=== PATIENT | female | born 1940 | race Caucasian/White ===

== ENCOUNTER 2016-12-31 15:00 | Inpatient (IN) | payer MEDICARE ==
--- NOTE | 2017-01-02 22:00 | HP ---
HISTORY AND PHYSICAL: DATE OF ADMISSION/SURGERY: 01/07/17 DATE OF OFFICE VISIT: 01/01/17 ATTENDING PHYSICIAN/SURGEON: Dr. Mary Jo Veloz. (DICTATED BY LILLIAM MUNOZ) PROCEDURE: Left total knee replacement. CHIEF COMPLAINT: Left knee pain. HISTORY OF PRESENT ILLNESS: Ms. Deng is a 76-year-old female with complaints of left knee pain secondary to advanced osteoarthritis. She has failed conservative management and has elected to proceed with a left total knee arthroplasty, which is scheduled on 01/07/17. PAST MEDICAL HISTORY: 1. Hypertension. 2. Gout. 3. Left elbow fracture. 4. Bilateral lower extremity edema. PAST SURGICAL HISTORY: Appendectomy. CURRENT MEDICATIONS: 1. Chlorthalidone. 2. Diltiazem. 3. Atenolol. 4. Vitamin B12. 5. Lisinopril. 6. Aspirin. 7. Advil. ALLERGIES: To PENICILLIN. FAMILY HISTORY: Heart disease, stroke, and brain cancer. SOCIAL HISTORY: The patient lives alone. She has a daughter who lives nearby. Denies tobacco, alcohol, or recreational drug use. Normally ambulates with a cane. REVIEW OF SYSTEMS: A complete 14-point review of systems was reviewed with the patient and is positive for edema, hypertension, and knee, bilateral shoulder, and elbow pain, was negative for history of anesthesia problems and negative for hepatitis C, HIV, and MRSA. Negative for DVT. PHYSICAL EXAMINATION GENERAL: Well-developed, well-nourished, 76-year-old female, in no acute distress. VITAL SIGNS: Height 63.5 inches, weight 250 pounds, pulse 81, blood pressure 145/78, respirations 14, temperature was 98.5, BMI of 43.6. HEENT: Head is normocephalic and atraumatic. NECK: Supple with no palpable lymph nodes. Throat is clear. PULMONARY: Lungs clear to auscultation bilaterally. No wheezes, rales, or rhonchi. CARDIO: Regular rate and rhythm. S1 and S2. No murmurs, rubs, or gallops. Trace edema. ABDOMEN: Soft, nontender. Positive bowel sounds throughout. NEUROLOGICAL: Alert and oriented x3. Cranial nerves II through XII are intact. Sensation intact to light touch. MUSCULOSKELETAL: Left lower extremity, no abrasions or open wounds. A large effusion at the knee with tenderness to palpation along the medial and lateral joint line. Range of motion was 15 to 100 degrees of flexion with terminal pain. No varus or valgus instability. Distally, 1+ pitting edema. Calves are supple and nontender. 5/5 ankle dorsiflexion and plantar flexion strength. Full sensation to light touch in all nerve distributions and 2+ palpable pulses. DIAGNOSTIC STUDIES: Multiple views of the patient's bilateral knees were reviewed, which showed advanced arthritis with [id number] contact with medial joint space. There is significant osteophyte formation, subchondral sclerosis, and joint space narrowing bilaterally. IMPRESSION: A 76-year-old female with advanced left knee arthritis. PLAN: She has failed conservative management, has elected to proceed with a left total knee arthroplasty, which is scheduled on 01/07/[address] Veloz has discussed the risks and benefits of the surgery and all her questions were answered. Coumadin was sent to the pharmacy today for postoperative DVT prophylaxis. A prescription for oxycodone was sent to her pharmacy for postoperative pain management and prescription for Colace was sent for post- operative constipation. She will see Dr. Veloz in 10 to 14 days postoperatively for followup. LILLIAM STRICKLAND [id number]/[facility] #: [id number] MTDD
[2017-01-07] MEDS ORDERED: Ondansetron INJ* 2 MG/ML VIAL IV ONE (06:00)
[2017-01-07] MEDS ORDERED: Dexamethasone IV* 4 MG/ML 1 ML (4 MG) IV SLOW PU ONE (06:00)
[2017-01-07] MEDS ORDERED: DiMENhydriNATE IV* 50 MG/ML VIAL IV PUSH PRN ×2 (07:22→15:02)
[2017-01-07] MEDS ORDERED: Ondansetron INJ* 2 MG/ML VIAL IV PRN ×2 (07:22→15:02)
[2017-01-07] MEDS ORDERED: fentaNYL* 50 MCG/ML 2 ML VIAL (100 MCG VIAL) IV PRN (07:22)
[2017-01-07] MEDS ORDERED: PROCHLORPERAZINE INJ 5 MG/ML 2 ML VIAL IV PRN ×2 (07:22→15:02)
[2017-01-07] MEDS ORDERED: HYDROmorphone* 1 MG/ML 1 ML SYR IV PRN (07:22)
[2017-01-07] MEDS ORDERED: HYDROmorphone* 1 MG/ML 1 ML SYR ONE ×3 (08:37→14:59)
[2017-01-07] MEDS ORDERED: Midazolam* 1 MG/ML 5 ML VIAL (5 MG) ONE (08:38)
[2017-01-07] MEDS ORDERED: fentaNYL* 50 MCG/ML 2 ML VIAL (100 MCG VIAL) ONE ×3 (08:38→13:54)
[2017-01-07] MEDS ORDERED: Morphine PF AMP (0.5MG/ML)* 5 MG/10 ML AMP ONE (08:38)
[2017-01-07] MEDS ORDERED: Ondansetron INJ* 2 MG/ML VIAL ONE (08:53)
[2017-01-07] MEDS ORDERED: Dexamethasone IV* 4 MG/ML 1 ML (4 MG) ONE (08:53)
[2017-01-07] MEDS ORDERED: Dexmedetomidine* 200 MCG/2 ML 2 ML VIAL ONE (08:55)
[2017-01-07] MEDS ORDERED: Propofol* 10 MG/ML 20 ML BTL IV PUSH ONE ×2 (08:55→13:24)
[2017-01-07] MEDS ORDERED: Meperidine SYRINGE* 50 MG/ML ONE ×2 (12:20→15:00)
[2017-01-07] MEDS ORDERED: Morphine INJ* 10 MG/ML 1 ML SYRINGE ONE (13:23)
[2017-01-07] MEDS ORDERED: Bisacodyl SUPP* 10 MG SUPP PR PRN (14:56)
[2017-01-07] MEDS ORDERED: Polyethylene Glycol 3350* 17 GM PACKET PO PRN (14:56)
[2017-01-07] MEDS ORDERED: Acetaminophen TAB* 325 MG PO PRN (14:56)
[2017-01-07] MEDS ORDERED: Naloxone* 0.4 MG/ML 1 ML VIAL IV PRN (15:02)
[2017-01-07] MEDS ORDERED: Nalbuphine* 20 MG/ML 1 ML VIAL IV PRN (15:02)
[2017-01-07] MEDS ORDERED: diPHENhydraMINE IV* 50 MG/ML 1 ml VIAL (BENADRYL) IV PRN (15:02)
--- NOTE | 2017-01-07 15:40 | RAD ---
Indication: Immediate postop exam following LEFT total knee replacement. Comparison: January 01, 2017 Technique: Portable AP and cross table lateral views LEFT knee. Report: Status post total knee replacement. Anterior surgical drain in place. Post-op fluid and gas is seen in the joint space and anterior subcutaneous tissues. Alignment is anatomic. No periprosthetic fracture evident. IMPRESSION: Unremarkable immediate postoperative appearance following LEFT knee replacement.
[2017-01-07] MEDS ORDERED: Warfarin TAB(*) 6 MG PO ONE (17:00)
[2017-01-07] MEDS: Clindamycin 600 MG IVPREMIX(* 600 MG/50 ML SDV IV SCH (18:33)
[2017-01-07] MEDS: Docusate CAP* 100 MG PO SCH (20:54)
[2017-01-07] MEDS ORDERED: LISINOPRIL 30 MG PO SCH (21:00)
[2017-01-07] MEDS: oxyCODONE/Acetamin 5/325 MG* TAB PO PRN (22:07)
--- NOTE | 2017-01-07 23:19 | CONS ---
CONSULTATION REPORT: DATE OF CONSULT: 01/07/17 REASON FOR MEDICAL CONSULT: Medical evaluation and medical management of comorbid medical conditions while here in the hospital. HISTORY OF PRESENT ILLNESS: Ms. Deng is a 76-year-old female patient, she carries a history of hypertension, gout, left elbow fracture, and history of bilateral lower extremity edema. She comes into the orthopedic services today because in the outpatient setting, she was complaining of knee pain for some time, failing conservative management, and was affecting her activities of daily living. She sought care with Dr. Veloz, ultimately it was felt that total knee replacement was indicated. The patient pursued this procedure today. She was evaluated in the postoperative setting. She says she is feeling quite well. She says she still does not have quite movement of her toes and sensations just yet, but she is able to move her legs at the knees and hips particularly on her right side. She says that she other than not feeling her leg, she has no complaints. She denies any chest pain, shortness of breath. There is no abdominal pain, says she does not feel nauseous. Because of her medical complexity, we were asked to evaluate in consult. PAST MEDICAL HISTORY: Significant for: 1. Hypertension. 2. Gout. 3. Left elbow fracture. 4. Bilateral lower extremity edema. PAST SURGICAL HISTORY: 1. She has had an appendectomy. 2. She has had now left total knee replacement. MEDICATIONS: Her home meds according to the list that we are able to obtain include: 1. Colchicine 0.6 mg p.o. daily as needed. 2. Chlorthalidone 25 mg daily. 3. Advil 200 to 400 mg daily as needed. 4. Vitamin B12 1000 mcg p.o. daily. 5. Lisinopril 30 mg p.o. b.i.d. I did confirm the b.i.d. dosing with her primary's notes. 6. Atenolol 50 mg p.o. daily. 7. Aspirin 81 mg daily. 8. Cartia 240 mg p.o. daily. ALLERGIES TO MEDICATIONS: LEVAQUIN, PENICILLIN, and VASELINE. FAMILY HISTORY: Her mother had a history of CVA. Father had a history of brain tumor. SOCIAL HISTORY: She does not smoke. She does not drink. Surrogate decision maker is her daughter, Erma. She lives alone. REVIEW OF SYSTEMS: There is no documented fever. She denied having any significant weight change. There was no double vision. She denies having any ear discharge. There was no rhinorrhea. There is no sore throat. No thyroid enlargement. She denies having any chest pain. No orthopnea, no nocturnal dyspnea. There is no abdominal pain. No nausea, no vomiting. No dysuria, no frequency. There is no seizure and no loss of consciousness. No pruritus and no skin ulcerations. Review of 14 systems completed, all others negative. PHYSICAL EXAM: Reveals vital signs, last blood pressure was 95/41 with pulse of 54, respirations 16, O2 sat 96%, temperature was 97.3. General: At this time, Ms. Deng is a 76-year-old female patient. She appears to be well nourished, well developed. Does not appear to be in any acute distress. She is sitting in the PACU bed. HEENT: Head is atraumatic and normocephalic. Eyes : EOMs are intact. Sclerae anicteric and not pale. Neck is supple. Throat: Oral mucosa appears to be moist. No oropharyngeal erythema. Heart sounds S1 and S2, regular rate and rhythm. No murmurs, rubs, or gallops. Lungs: Clear to auscultation bilaterally. No wheezes, rales, or rhonchi. Abdomen: Soft, flat, and nontender. Bowel sounds are hypoactive. Extremities: Pulses 2+ throughout. She is able to move her upper extremities with 5/5 strength, but again lower extremities, she had difficulty moving. She can flex up the hips. Distal CSM checks are intact in the lower extremities. Neurologically, she is awake, she is alert, she is oriented x3. Her tongue is midline. Export Coordinator are equal. She had no gross focal deficits. Skin is intact with the exception she has an incision to the left knee covered in Rosas dressing. Hemovac drain intact. DIAGNOSTIC STUDIES/LAB DATA: Her labs, preoperative WBC 10.8, RBC of 4.77, hemoglobin 13.3, hematocrit of 42, and platelet count of 302. The INR was 0.87. Sodium was 138, potassium 4.3, chloride 102, bicarb 27, BUN 19, creatinine of 0.92. Her glucose was 103. Her A1c 5.9. AST 10, ALT 7. Her urine was obtained preop, it showed 1+ leukocyte esterase, 1+ wbc. She had a urine micro, which was negative. She had a preop chest x-ray, which showed no active cardiopulmonary disease. There was a preoperative EKG. She has several here in the chart, but it shows a sinus rhythm with a rate of 90. No ST elevations or T-wave inversions were noted. Old medical records reviewed. ASSESSMENT AND PLAN: Ms. Deng is a 76-year-old female patient coming in to the orthopedic service today for an elective total knee replacement. We were asked to evaluate in consult to help manage her medical problems. Our recommendations at this point are: 1. Left total knee replacement. I will defer to Dr. Veloz and her team. 2. Hypertension. Blood pressure now 90s. This is probably low because of the Duramorph given, so I am going to hold her medications with the exception of the beta moi. I did write for hold parameters on the beta moi for heart rate less than 60 or blood pressure systolic less than 100. We will slowly re- introduce her medications when we are able. 3. Gout. Again, we will follow. If need to, we will give her p.r.n. colchicine. 4. History of bilateral edema. We will monitor and diurese if needed. 5. DVT prophylaxis. We will defer to the primary team. 6. Code status: Full code. 7. Fluids, electrolytes, and nutrition. I would recommend a heart healthy diet. TIME SPENT: Time spent on the consult was approximately 60 minutes, greater than half that time was spent [id number] with the patient obtaining my history and physical, other half the time was spent going over the plan of care with the patient and implementing the plan of care. I did discuss the plan of care with my attending, Dr. Campo, who is in agreement. JUDIE ZAMBRANO NP CC: Dr. Degroot; Dr. Veloz* [id number]/[facility] #: [id number] MTDRuben
[2017-01-08] MEDS: Clindamycin 600 MG IVPREMIX(* 600 MG/50 ML SDV IV SCH ×2 (02:29→10:41)
[2017-01-08] MEDS: oxyCODONE/Acetamin 5/325 MG* TAB PO PRN ×4 (02:35→17:53)
[2017-01-08] MEDS ORDERED: Ondansetron TAB* 4 MG PO PRN (04:00)
[2017-01-08] MEDS ORDERED: diPHENhydraMINE IV* 50 MG/ML 1 ml VIAL (BENADRYL) IV PRN (04:00)
[2017-01-08] MEDS ORDERED: Morphine INJ* 2 MG/ML 1 ML SYRINGE IV PRN (04:00)
[2017-01-08] MEDS ORDERED: oxyCODONE/Acetamin 5/325 MG* TAB PO PRN (04:00)
[2017-01-08 06:10] LABS: Hematocrit 29 % (35-47); Hemoglobin 9.5 g/dl (12.0-16.0)
[2017-01-08 06:23] LABS: BUN/Creatinine Ratio 16.9 (8-20); Calcium 8.9 mg/dL (8.6-10.3); EGFR Non-African American 73.1 (>60); Potassium 3.9 mmol/L (3.5-5.0)
[2017-01-08] MEDS: Atenolol TAB* 50 MG PO SCH (08:41)
[2017-01-08] MEDS: Docusate CAP* 100 MG PO SCH ×2 (08:41→21:25)
[2017-01-08] MEDS ORDERED: Chlorthalidone TAB* 50 MG PO SCH (09:00)
[2017-01-08] MEDS ORDERED: DILTIAZEM 240 MG PO SCH (09:00)
[2017-01-08] MEDS ORDERED: ATENOLOL 50 MG PO SCH ×2 (09:00)
--- NOTE | 2017-01-08 10:08 | OP ---
OPERATIVE NOTE: DATE OF OPERATION: 01/07/17 - inpatient room #347-02 DATE OF : 42 ATTENDING SURGEON: Mary Jo Veloz MD NEW MEDIA STRATEGIST: LILLIAM Fitzgerald Ms. English did help throughout the procedure with preparation of the leg, wound retraction, manipulation of the knee, and wound closure. ANESTHESIOLOGIST: David Chow MD ANESTHESIA TYPE: Spinal with adductor nerve block. PRE-OP DIAGNOSIS: Severe end-stage degenerative osteoarthritis of the left knee joint. POST-OP DIAGNOSIS: Severe end-stage degenerative osteoarthritis of the left knee joint. PROCEDURE PERFORMED: Left total knee arthroplasty. HARDWARE USED: This is cemented [employer] total knee arthroplasty hardware. Two packets of Simplex bone cement were used. For the femur, a size 6 left narrow femoral component. For the tibia, a size 5 left tibial baseplate. For the insert, a 9-mm posterior stabilized articular insert. For the patella, a 35-mm 7.5 thickness 3-peg all poly patella. TOURNIQUET TIME: 63 minutes. COMPLICATIONS: None. ESTIMATED BLOOD LOSS: 300 cc. SPECIMEN: Bone and cartilage from the left knee joint, sent to pathology. BRIEF HISTORY/INDICATIONS: Ms. Deng is a 76-year-old female with a remote injury to the left knee. Over the years, she has developed severe end-stage arthritis with [id number] contact on radiographs. She failed conservative treatment with anti-inflammatories, pain medications, intra-articular injections , physical therapy, and brace wear. The patient elected to have left total knee arthroplasty due to continued pain and decreased quality of life. Informed consent was obtained from the patient. She understood the risks included, but were not limited to bleeding, infection, damage to nearby structures, continued pain, need for further surgery, intraoperative fracture, nerve palsy, hardware failure or loosening, knee stiffness, loss of motion, stroke, heart attack, blood clot, and . She wished to proceed. INTRAOPERATIVE FINDINGS: Intraoperatively, the patient was noted to have extreme knee stiffness preoperatively with motion 15 to 85 degrees of flexion. Postoperatively, she had full extension to 110 degrees of flexion limited by her morbid obese body habitus. The patient was noted to have extensive tricompartmental loss of cartilage. She had osteopenia and extensive osteophyte formation. DESCRIPTION OF PROCEDURE: Ms. Deng was identified in the pre-anesthesia unit. Her left lower extremity was marked as the correct operative site. Informed consent was signed and placed in the chart. The patient was taken to the operating room and placed under spinal anesthesia with an adductor nerve block. A Hernandez catheter was placed. Tourniquet was placed on the left thigh. Left lower extremity was prepped and draped in the usual sterile fashion. Preop time-out was made to correctly identify the patient's side and site. Appropriate perioperative antibiotics were given within 1 hour of incision. Tourniquet was inflated and total tourniquet time for this procedure was 63 minutes. A 15-cm midline incision was made using her prior anterior incision. A new 10 blade was used to make a standard medial parapatellar arthrotomy and the patella was subluxed laterally. There was extensive osteophyte formation and the knee flexed only to approximately 85 degrees. Electrocautery was used to subperiosteally elevate soft tissue off the superomedial tibia to the mid sagittal plane. Any osteophytes were carefully removed. A drill was used to enter the distal femur. Intramedullary distal femoral cutting guide was pinned to the position. Oscillating saw was used to make the appropriate distal femoral cuts. External rotation guide was then pinned on the distal femur. The distal femur was sized to a size 6. Size 6 multi-cutting jig was pinned on the distal femur. The oscillating saw was used to make the appropriate chamfer cuts. Any osteophytes were carefully removed. The PCL was completely released and the tibia was subluxed anteriorly. Extramedullary tibial cutting guide was pinned on the proximal tibia. Oscillating saw was used to make a proximal tibial cut perpendicular to the mechanical axis of the tibia. The tibial bone was carefully removed with a curette. The knee was brought out into full extension. A spacer block had good fit with good medial and lateral ligamentous balancing. Flexion and extension gaps were well balanced. The knee was flexed up. Lamina potato loader was placed both medially and laterally. Any remaining meniscus was carefully removed using electrocautery. Posterior osteophytes were removed using a curette and curved osteotome. A left size 6 narrow femoral component was impacted onto the distal femur. The box for the posterior stabilized implant was prepared using a reamer and box cut osteotome. Size 5 tibial trial and a 9-mm insert trial were placed. The knee was taken through a range of motion. The knee had full extension to 110 degrees of flexion with flexion limited by body habitus, good patellofemoral tracking. The patella was everted. 7 mm of patellar bone and cartilage were carefully removed with an oscillating saw. The patella was sized to a size 35. Three peg holes were drilled through the size 35 guide. A 7.5 thickness size 35 patellar trial was placed and the knee was taken through range of motion. There was good patellofemoral tracking. All trials were carefully removed. Tibia was subluxed anteriorly and sized through size 5. Proximal tibia was prepared using the size 5 keel punch. All bony cut surfaces were copiously irrigated with sterile saline and dried. Final implants were cemented into place starting with the tibia followed by the femur and last the patella. A 9 mm insert trial was placed and the knee was brought out into full extension. Tourniquet was turned down at 63 minutes. The knee was copiously irrigated with sterile saline. Once the cement had fully cured, the insert trial was removed. Any excess cement was carefully removed using thin osteotome around the implants. Electrocautery was used to obtain meticulous hemostasis. Final insert chosen was 9 mm posterior stabilized articular insert. This was locked into position on the tibial tray. The stability of the insert was checked and rechecked and noted to be stable. The knee was copiously irrigated with sterile saline. The extensor mechanism was closed over a medium Hemovac drain using interrupted #1 Vicryl's. The rest of the incision was closed in a layered fashion using 0 and 2-0 Vicryl's. Skin was closed using running 3-0 nylon suture. Sterile Xeroform, 4x4's, and Webril were used to cover the incision. Cold pack and Rosas wrap were placed over this. The patient's anesthesia was reversed without difficulty. She was taken to the PACU in stable condition. Intended weightbearing will be weightbearing as tolerated. Intended DVT prophylaxis will be Coumadin with a Lovenox bridge. [id number]/[facility] #: [id number] FRENCH HOSPITALRuben
--- NOTE | 2017-01-08 10:15 | PN ---
Progress Note - Progress Note SOAP: Subjective: []Patient seen at bedside, daughter and manager performance improvement present. Overall her pain is tolerable. Has many questions about her discharge plan which were answered to the best of my ability. Objective: [] Vital Signs Temp 97.6 F 01/08/17 07:48 Pulse 62 01/08/17 07:48 Resp 16 01/08/17 08:41 BP 138/68 01/08/17 08:45 Pulse Ox 99 01/08/17 08:00 Intake & Output 01/07/17 01/08/17 01/08/17 18:59 06:59 18:59 Intake Total 2500 2273 Output Total 30 950 375 Balance 2470 1323 -375 Weight 256 lb 6.4 oz Intake: IV Fluids 2500 980 LR 2500 980 IVPB 113 ABX - CLINDAMYCIN 113 Oral 1180 Output: Hernandez 950 375 Residual 30 Hernandez 16 Fr 30 Other: # Bowel Movements 0 Laboratory Results - last 24 hr 01/08/17 01/08/17 01/08/17 05:41 05:41 05:41 Hgb 9.5 L Hct 29 L INR (Anticoag Therapy) 1.02 Sodium 131 L Potassium 3.9 Chloride 98 L Carbon Dioxide 27 Anion Gap 6 BUN 13 Creatinine 0.77 Est GFR ( Amer) 94.0 Est GFR (Non-Af Amer) 73.1 BUN/Creatinine Ratio 16.9 Glucose 142 H Calcium 8.9 Left knee reveals a small patch of bloody drainage at the distal lateral aspect of her ANDREE wrap Active DF/PF of the left ankle diffuse mild calf soreness, Beatrice's negative neuro intact distally hemovac drain discontinued without difficulty, tip intact Assessment: []s/p Left total knee arthroplasty POD #1 Plan: []PT/OT, WBAT LLE Cooumadin with Lovenox bridge, 8 mg today Home Friday w VNS
[2017-01-08] MEDS ORDERED: Enoxaparin(*) 30 MG/0.3 ML SYR SUBCUT SCH (12:00)
--- NOTE | 2017-01-08 13:20 | PN ---
Subjective Date of Service: 01/08/17 Interval History: Pt examined today at the bedside. She states that she is feeling well. States that her pain in her left knee is controlled. Denies chest pain and denies sob. ROS- denies fever, denies chills, denies lightheadedness, denies loc, denies abdominal pain, denies nausea, denies vomiting, denies chest pain and sob, review of 11 systems completed all others negative, Objective Active Medications: Acetaminophen (Tylenol Tab*) 650 mg PO Q4H PRN PRN Reason: PAIN OR TEMPERATURE Atenolol (Tenormin Tab*) 50 mg PO DAILY [facility] Last Admin: 01/08/17 08:41 Dose: 50 mg Bisacodyl (Dulcolax Supp*) 10 mg [place] DAILY PRN PRN Reason: constipation Diphenhydramine HCl (Benadryl Iv*) 12.5 mg IV Q6H PRN PRN Reason: PRURITIS Docusate Sodium (Colace Cap*) 100 mg PO BID [facility] Last Admin: 01/08/17 08:41 Dose: 100 mg Enoxaparin Sodium (Lovenox(*)) 30 mg SUBCUT Q24H [facility] Last Admin: 01/08/17 13:04 Dose: 30 mg Lactated Ringer's (Lactated Ringers 1000 Ml Bag*) 1,000 mls @ 100 mls/hr IV PER RATE [facility] Last Admin: 01/08/17 04:41 Dose: 100 mls/hr Lactulose (Lactulose*) 30 ml PO Q6H PRN PRN Reason: constipation Magnesium Hydroxide (Milk Of Magnesia Liq*) 30 ml PO Q6H PRN PRN Reason: constipation Morphine Sulfate (Morphine Inj (Syringe)*) 2 mg IV Q2H PRN PRN Reason: PAIN Ondansetron HCl (Zofran Tab*) 4 mg PO Q6H PRN PRN Reason: NAUSEA Oxycodone HCl (Roxycodone Tab*) 10 mg PO Q4H PRN PRN Reason: SEVERE PAIN Oxycodone/Acetaminophen (Percocet 5/325 Tab*) 1 tab PO Q3H PRN PRN Reason: PAIN - MODERATE Oxycodone/Acetaminophen (Percocet 5/325 Tab*) 2 tab PO Q3H PRN PRN Reason: PAIN - MODERATE Last Admin: 01/08/17 13:07 Dose: 2 tab Pharmacy Profile Note (Coumadin Daily Reminder*) 1 note FOLLOW UP 1700 JOHNNIE Polyethylene Glycol/Electrolytes (Miralax*) 17 gm PO DAILY PRN PRN Reason: Constipation Warfarin Sodium (Coumadin Tab(*)) 8 mg PO ONCE@1700 ONE PRN Reason: Protocol Stop: 01/08/17 17:01 Vital Signs 01/07/17 01/07/17 01/07/17 15:05 15:10 15:15 Temperature 97.3 F Pulse Rate 57 54 54 Respiratory 12 11 16 Rate Blood Pressure 94/40 99/46 105/43 (mmHg) O2 Sat by Pulse 97 97 95 Oximetry 01/07/17 01/07/17 01/07/17 15:20 15:30 15:45 Temperature Pulse Rate 54 54 50 Respiratory 14 16 16 Rate Blood Pressure 95/41 87/54 (mmHg) O2 Sat by Pulse 94 96 96 Oximetry 01/07/17 01/07/17 01/07/17 16:00 16:15 16:22 Temperature 96.8 F Pulse Rate 53 50 Respiratory 16 18 16 Rate Blood Pressure 97/48 100/45 (mmHg) O2 Sat by Pulse 99 99 Oximetry 01/07/17 01/07/17 01/07/17 16:30 16:45 17:02 Temperature Pulse Rate 53 49 54 Respiratory 18 16 16 Rate Blood Pressure 99/46 95/41 94/47 (mmHg) O2 Sat by Pulse 99 98 98 Oximetry 01/07/17 01/07/17 01/07/17 17:17 17:23 18:16 Temperature 97.3 F 97.3 F 95.9 F Pulse Rate 56 56 62 Respiratory 16 16 16 Rate Blood Pressure 114/58 114/58 122/54 (mmHg) O2 Sat by Pulse 94 94 100 Oximetry 01/07/17 01/07/17 01/07/17 19:28 19:36 20:11 Temperature 97.4 F Pulse Rate 63 Respiratory 16 18 Rate Blood Pressure 128/55 (mmHg) O2 Sat by Pulse 100 99 Oximetry 01/07/17 01/07/17 01/07/17 21:20 22:07 23:40 Temperature 98.0 F 97.7 F Pulse Rate 72 64 Respiratory 18 18 16 Rate Blood Pressure 144/58 128/59 (mmHg) O2 Sat by Pulse 99 96 Oximetry 01/07/17 01/08/17 01/08/17 23:52 01:03 02:35 Temperature Pulse Rate Respiratory 18 16 18 Rate Blood Pressure (mmHg) O2 Sat by Pulse Oximetry 01/08/17 01/08/17 01/08/17 03:35 04:35 06:44 Temperature 97.8 F Pulse Rate 63 Respiratory 16 18 18 Rate Blood Pressure 131/59 (mmHg) O2 Sat by Pulse 97 Oximetry 01/08/17 01/08/17 01/08/17 07:48 08:00 08:41 Temperature 97.6 F Pulse Rate 62 Respiratory 18 18 16 Rate Blood Pressure 143/49 (mmHg) O2 Sat by Pulse 99 99 Oximetry 01/08/17 01/08/17 01/08/17 08:45 11:48 13:07 Temperature 97.8 F Pulse Rate 55 Respiratory 18 18 Rate Blood Pressure 138/68 136/60 (mmHg) O2 Sat by Pulse 100 Oximetry Oxygen Devices in Use Now: Nasal Cannula Appearance: 76 y/o female patient NAD, sitting in surgical bed. Eyes: No Scleral Icterus Ears/Nose/Mouth/Throat: NL Teeth, Lips, Gums Neck: NL Appearance and Movements; NL JVP, Trachea Midline Respiratory: Symmetrical Chest Expansion and Respiratory Effort, Clear to Auscultation Cardiovascular: NL Sounds; No Murmurs; No JVD Abdominal: NL Sounds; No Tenderness; No Distention Extremities: - - distal csm checks intact to LLE Skin: No Rash or Ulcers, - - incision to LLE covered with broderick bandage CDI, Neurological: Alert and Oriented x 3 Lines/Tubes/Other Access: Clean, Dry and Intact Peripheral IV Result Diagrams: 01/08/17 05:41 01/08/17 05:41 Assess/Plan/Problems-Billing Assessment: 76 y/o female patient s/p KA medicine was asked to follow due to comorbid medical problems - Patient Problems (1) Status post total left knee replacement Current Visit: Yes Status: Acute Priority: High Comment: Management PER ortho (2) DVT prophylaxis Current Visit: Yes Status: Acute Priority: High Comment: Lovenox sub with coumadin bridge (3) FEN Current Visit: Yes Status: Acute Priority: High Comment: Regular Diet (4) Bilateral lower extremity edema Current Visit: Yes Status: Acute Priority: High Comment: No edema noted start chlorthalidone when able (5) Gout Current Visit: Yes Status: Acute Priority: High SNOMED Code(s): 95496224 Comment: Stable follow (6) HYPERTENSION Current Visit: Yes Status: Active Priority: High Comment: BP 130's today will add on cardizem Immediate release at d/c can resume once daily SR dosing, continue atenolol add lisinopril back when able, Status and Disposition: Per ortho
[2017-01-08] MEDS ORDERED: Warfarin TAB(*) 4 MG PO ONE (17:00)
[2017-01-08] MEDS: Diltiazem TAB* 60 MG PO SCH (17:54)
[2017-01-08] MEDS: oxyCODONE TAB* 5 MG TAB PO PRN (21:25)
[2017-01-09] MEDS: Diltiazem TAB* 60 MG PO SCH ×2 (00:53→06:13)
[2017-01-09] MEDS: oxyCODONE/Acetamin 5/325 MG* TAB PO PRN ×2 (00:53→11:00)
[2017-01-09] MEDS: oxyCODONE TAB* 5 MG TAB PO PRN ×2 (06:08→19:34)
[2017-01-09 06:56] LABS: Hematocrit 26 % (35-47); Hemoglobin 8.5 g/dl (12.0-16.0)
[2017-01-09 07:21] LABS: BUN/Creatinine Ratio 14.9 (8-20); Calcium 8.3 mg/dL (8.6-10.3); EGFR African American 81.6 (>60); EGFR Non-African American 63.5 (>60); Potassium 3.9 mmol/L (3.5-5.0)
--- NOTE | 2017-01-09 07:43 | PN ---
Progress Note - Progress Note SOAP: Subjective: Pt. is alert, c/o nausea and some pain. Objective: LLE - dressing changed, drainage ss mod, inc clean and intact. distal bruising and nvi. Vital Signs: Temp Pulse Resp BP Pulse Ox 97.5 F 59 18 132/56 96 01/09/17 03:37 01/09/17 06:13 01/09/17 07:41 01/09/17 06:13 01/09/17 03:37 Laboratory Results - last 24 hr 01/09/17 01/09/17 01/09/17 05:57 05:57 05:57 Hgb 8.5 L Hct 26 L INR (Anticoag Therapy) 1.45 H Sodium 129 L Potassium 3.9 Chloride 95 L Carbon Dioxide 29 Anion Gap 5 BUN 13 Creatinine 0.87 Est GFR ( Amer) 81.6 Est GFR (Non-Af Amer) 63.5 BUN/Creatinine Ratio 14.9 Glucose 123 H Calcium 8.3 L Assessment: 76 yo F POD 2 s/p LTKA Plan: Inc draining today, will d/c lovenox 6 mg coumadin tonight will discuss hyponatremia with medicine team vitals stable pt/ot plan d/c to home 01/10
[2017-01-09] MEDS: Atenolol TAB* 50 MG PO SCH (09:10)
[2017-01-09] MEDS: Magnesium Hydroxide LIQ* 30 ML UDC PO PRN ×2 (09:11→14:53)
[2017-01-09] MEDS: Docusate CAP* 100 MG PO SCH ×2 (09:12→19:34)
[2017-01-09] MEDS: Diltiazem CD CAP* 240 MG PO SCH (09:12)
--- NOTE | 2017-01-09 15:54 | PN ---
Subjective Date of Service: 01/09/17 Interval History: Pt feels well. Did PT today. c/o "feeling cold" when cryo unit is applied to left knee Objective Active Medications: Acetaminophen (Tylenol Tab*) 650 mg PO Q4H PRN PRN Reason: PAIN OR TEMPERATURE Atenolol (Tenormin Tab*) 50 mg PO DAILY [facility] Last Admin: 01/09/17 09:10 Dose: Not Given Bisacodyl (Dulcolax Supp*) 10 mg [place] DAILY PRN PRN Reason: constipation Diltiazem HCl (Cardizem Cd Cap*) 240 mg PO DAILY [facility] Last Admin: 01/09/17 09:12 Dose: 240 mg Diphenhydramine HCl (Benadryl Iv*) 12.5 mg IV Q6H PRN PRN Reason: PRURITIS Docusate Sodium (Colace Cap*) 100 mg PO BID [facility] Last Admin: 01/09/17 09:12 Dose: 100 mg Lactated Ringer's (Lactated Ringers 1000 Ml Bag*) 1,000 mls @ 100 mls/hr IV PER RATE [facility] Last Admin: 01/08/17 04:41 Dose: 100 mls/hr Lactulose (Lactulose*) 30 ml PO Q6H PRN PRN Reason: constipation Magnesium Hydroxide (Milk Of Magnesia Liq*) 30 ml PO Q6H PRN PRN Reason: constipation Last Admin: 01/09/17 14:53 Dose: 30 ml Morphine Sulfate (Morphine Inj (Syringe)*) 2 mg IV Q2H PRN PRN Reason: PAIN Ondansetron HCl (Zofran Tab*) 4 mg PO Q6H PRN PRN Reason: NAUSEA Oxycodone HCl (Roxycodone Tab*) 10 mg PO Q4H PRN PRN Reason: SEVERE PAIN Last Admin: 01/09/17 06:08 Dose: 10 mg Oxycodone/Acetaminophen (Percocet 5/325 Tab*) 1 tab PO Q3H PRN PRN Reason: PAIN - MODERATE Last Admin: 01/09/17 14:46 Dose: 1 tab Oxycodone/Acetaminophen (Percocet 5/325 Tab*) 2 tab PO Q3H PRN PRN Reason: PAIN - MODERATE Last Admin: 01/09/17 11:00 Dose: 2 tab Pharmacy Profile Note (Coumadin Daily Reminder*) 1 note FOLLOW UP 1700 [facility] Last Admin: 01/08/17 17:54 Dose: 1 note Polyethylene Glycol/Electrolytes (Miralax*) 17 gm PO DAILY PRN PRN Reason: Constipation Warfarin Sodium (Coumadin Tab(*)) 4 mg PO ONCE@1700 ONE PRN Reason: Protocol Stop: 01/09/17 17:01 Vital Signs 01/08/17 01/08/17 01/08/17 15:58 17:49 17:53 Temperature Pulse Rate 64 Respiratory 18 Rate Blood Pressure 158/64 (mmHg) O2 Sat by Pulse 98 Oximetry 01/08/17 01/08/17 01/08/17 19:53 20:56 21:25 Temperature 97.6 F Pulse Rate 64 Respiratory 16 20 16 Rate Blood Pressure 159/61 (mmHg) O2 Sat by Pulse 100 Oximetry 01/08/17 01/08/17 01/09/17 21:47 23:25 00:51 Temperature 97.6 F Pulse Rate 60 Respiratory 16 16 16 Rate Blood Pressure 154/61 (mmHg) O2 Sat by Pulse 99 Oximetry 01/09/17 01/09/17 01/09/17 00:53 02:53 03:37 Temperature 97.5 F Pulse Rate 56 Respiratory 16 16 16 Rate Blood Pressure 145/46 (mmHg) O2 Sat by Pulse 96 Oximetry 01/09/17 01/09/17 01/09/17 06:08 06:13 07:25 Temperature 98.9 F Pulse Rate 59 60 Respiratory 16 16 Rate Blood Pressure 132/56 129/40 (mmHg) O2 Sat by Pulse 100 Oximetry 01/09/17 01/09/17 01/09/17 07:41 08:00 09:09 Temperature Pulse Rate 58 Respiratory 18 20 Rate Blood Pressure 118/44 (mmHg) O2 Sat by Pulse 100 98 Oximetry 01/09/17 01/09/17 01/09/17 11:00 11:34 12:49 Temperature 98.7 F Pulse Rate 58 Respiratory 18 16 18 Rate Blood Pressure 143/55 (mmHg) O2 Sat by Pulse 97 Oximetry 01/09/17 01/09/17 14:46 14:55 Temperature 97.8 F Pulse Rate 60 Respiratory 18 16 Rate Blood Pressure 143/48 (mmHg) O2 Sat by Pulse 97 Oximetry Oxygen Devices in Use Now: None Appearance: 76 yo F in nAD, AAOx3 Eyes: No Scleral Icterus, PERRLA Ears/Nose/Mouth/Throat: NL Teeth, Lips, Gums, Mucous Membranes Moist Neck: NL Appearance and Movements; NL JVP, Trachea Midline Respiratory: Symmetrical Chest Expansion and Respiratory Effort, Clear to Auscultation Cardiovascular: NL Sounds; No Murmurs; No JVD, RRR Abdominal: NL Sounds; No Tenderness; No Distention, No Hepatosplenomegaly Lymphatic: No Cervical Adenopathy Extremities: No Clubbing, Cyanosis, - - left knee edema-covered with cryo tx, dressings post op-not uncovered Skin: No Rash or Ulcers, No Nodules or Sclerosis Neurological: Alert and Oriented x 3, NL Muscle Strength and Tone Result Diagrams: 01/09/17 05:57 01/09/17 05:57 Assess/Plan/Problems-Billing Assessment: 76 y/o female patient s/p LTKA medicine was asked to follow due to comorbid medical problems - Patient Problems (1) HYPERTENSION Comment: BP 130's today. cont Cardizem and Atenolol. Suspect she will require to restart lisinopril after discharge Holding HCTZ (2) Gout Comment: Stable follow (3) Status post total left knee replacement Comment: Management PER ortho (4) DVT prophylaxis Comment: Lovenox sub with coumadin bridge as per ortho service (5) Postoperative anemia due to acute blood loss Comment: Hb lower today, suspect hemodilution. no signs of acute bleed recommend to monitor in aM Status and Disposition: Thank you for allowing us to see pt in consultation. For now would recommend to cont Atenolol and Cardizem and holding lisinopril and HCTZ to be restarted if needed after discharge. will sign off and see pt prn
[2017-01-09] MEDS ORDERED: Warfarin TAB(*) 4 MG PO ONE (17:00)
[2017-01-10] MEDS: oxyCODONE/Acetamin 5/325 MG* TAB PO PRN ×3 (03:08→12:48)
[2017-01-10 05:41] LABS: Hematocrit 25 % (35-47); Hemoglobin 8.5 g/dl (12.0-16.0)
[2017-01-10] MEDS: Atenolol TAB* 50 MG PO SCH (08:21)
[2017-01-10] MEDS: Diltiazem CD CAP* 240 MG PO SCH (08:22)
[2017-01-10] MEDS: Docusate CAP* 100 MG PO SCH (08:22)
--- NOTE | 2017-01-10 11:36 | PN ---
Progress Note - Progress Note SOAP: Subjective: 76 y/o female s/p left TKA by DR. Veloz 01/07/2017. VSS afebrile overnight, + Bm. Overall feeling well, feels OK with D/C. Objective: General- Well appearing, NAD, sitting comfortably MSK- Dressing taken down, Incision C/D, minimal drop of sero-ang drainage from one suture site, otherwise intact, dried drainage seen on gauze, resolving eccymosis seen around incision and extending into L ankle throughout calf, non- tender calf, minimal warmth around leg, minimal swelling. neg homans LEFt, PT 2+ b/l, + PF/ DF b/l LEs sensation grossly intact- patient states slightly diminished over left calf. Laboratory Results - last 24 hr 01/10/17 01/10/17 05:31 05:31 Hgb 8.5 L Hct 25 L INR (Anticoag Therapy) 1.96 H Vital Signs Temp 98.0 F 01/10/17 07:19 Pulse 67 01/10/17 07:19 Resp 16 01/10/17 10:12 BP 157/55 01/10/17 07:19 Pulse Ox 97 01/10/17 08:00 Intake & Output 01/09/17 01/10/17 01/10/17 18:59 06:59 18:59 Intake Total 760 50 720 Output Total 1700 0 1400 Balance -940 50 -680 Intake: Oral 760 50 720 Output: Urine 1700 0 1400 Other: Estimated Void Medium Date of Last Bowel 11/10/16 Movement # Bowel Movements 1 Estimated Stool Amount Medium # Voids 1 Assessment: 76 y/o female s/p left TKA by DR. Veloz 01/07/2017. Plan: - DVt prophylaxis- theraputic INR, no lovenox. continue coumadin at home - H&H stable - BP stable- resume home meds - F/U with Dr. Veloz within 10 days for wound check. Active Medications Generic Name Dose Route Start Last Admin Trade Name Freq PRN Reason Stop Dose Admin Acetaminophen 650 mg 01/07/17 14:56 Tylenol Tab* PO Q4H PRN PAIN OR TEMPERATURE Atenolol 50 mg 01/08/17 09:00 01/10/17 08:21 Tenormin Tab* PO 50 mg DAILY JOHNNIE Administration Bisacodyl 10 mg 01/07/17 14:56 Dulcolax Supp* [place] DAILY PRN constipation Diltiazem HCl 240 mg 01/09/17 09:00 01/10/17 08:22 Cardizem Cd Cap* PO 240 mg DAILY JOHNNIE Administration Diphenhydramine HCl 12.5 mg 01/08/17 04:00 Benadryl Iv* IV Q6H PRN PRURITIS Docusate Sodium 100 mg 01/07/17 21:00 01/10/17 08:22 Colace Cap* PO Not Given BID JOHNNIE Lactulose 30 ml 01/07/17 14:56 Lactulose* PO Q6H PRN constipation Magnesium Hydroxide 30 ml 01/07/17 14:56 01/09/17 14:53 Milk Of Magnesia Liq* PO 30 ml Q6H PRN Administration constipation Morphine Sulfate 2 mg 01/08/17 04:00 Morphine Inj (Syringe)* IV Q2H PRN PAIN Ondansetron HCl 4 mg 01/08/17 04:00 Zofran Tab* PO Q6H PRN NAUSEA Oxycodone HCl 10 mg 01/08/17 04:00 01/09/17 19:34 Roxycodone Tab* PO 10 mg Q4H PRN Administration SEVERE PAIN Oxycodone/Acetaminophen 1 tab 01/08/17 04:00 01/09/17 14:46 Percocet 5/325 Tab* PO 1 tab Q3H PRN Administration PAIN - MODERATE Oxycodone/Acetaminophen 2 tab 01/08/17 04:00 01/10/17 08:21 Percocet 5/325 Tab* PO 2 tab Q3H PRN Administration PAIN - MODERATE Pharmacy Profile Note 1 note 01/08/17 17:00 01/09/17 17:39 Coumadin Daily Reminder* FOLLOW UP 1 note 1700 JOHNNIE Administration Polyethylene Glycol/Electrolytes 17 gm 01/07/17 14:56 Miralax* PO DAILY PRN Constipation
[2017-01-10 11:59] VITALS: BP 133/48
--- NOTE | 2017-01-11 03:12 | DS ---
DISCHARGE SUMMARY: DATE OF ADMISSION: 01/07/17 DATE OF DISCHARGE: 01/10/17 CHIEF COMPLAINT: 1. Left knee pain. 2. Hypertension. 3. Gout. 4. History of left elbow fracture. 5. Bilateral lower extremity edema. DISCHARGE DIAGNOSES: 1. Left total knee replacement. 2. Hypertension. 3. Gout. 4. History of left elbow fracture. 5. Bilateral lower extremity edema. PROCEDURE: Left total knee arthroplasty. CONSULTATIONS: 1. Physical Therapy. 2. Occupational Therapy. 3. Hospital consult. BRIEF HISTORY: Ms. 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 Mary Jo Veloz. HOSPITAL COURSE: Ms. Deng was admitted to [facility] on 01/07/17 where she underwent an uncomplicated left total knee arthroplasty. Postoperatively, she recovered on the surgical short stay unit. Her Hernandez was removed on postoperative day 2 and she was able to void on her without dif ficulty. She advanced to regular diet and her pain was controlled with p.o. Percocet. She was resta rted on her home medication. Her labs and vital signs remained stable. She was able to bear weight as tolerated in the left lower extremity. She advanced appropriately with physical therapy and occu pational therapy. Her DVT prophylaxis was managed with Lovenox and Coumadin until she reached thera peutic INR level. By postoperative day 3, she was orthopedically and medically stable to be dischar [facility] to home with home services. PHYSICAL EXAMINATION: General: Well-appearing, in no acute distress. Alert and oriented. Sitting comfortably. Vital Signs: Temperature 98, pulse 67, respirations 16, blood pressure 157/55, pulse oxygenation 97%. Musculoskeletal: The dressing removed from the left knee. Incision was clean and dry with minimal drop of serosanguineous drainage seen from one suture site, otherwise incision int act. Dry drainage seen on the gauze. Sterile dressing replaced. Increased ecchymosis seen around the incision extending throughout calf down to left ankle, nontender. Calf minimal warmth around th e leg. Minimal swelling. Negative Homans sign on the left. Posterior tibial pulses 2+ bilaterally . Positive dorsiflexion and plantar flexion bilateral lower extremities. Sensation grossly intact, although the patient states slightly diminished over the left calf area. LABORATORY DATA: H and H of 8.5 and 25 with an INR of 1.96. DISCHARGE MEDICATIONS: 1. Tylenol 650 mg p.o. q.4 hours p.r.n. for pain. The patient advised not to take more than 4000 m g in a 24-hour period. 2. Atenolol 50 mg p.o. daily. 3. Cardizem 240 mg daily. 4. Dulcolax 100 mg p.o. b.i.d. 5. Percocet 5/325 one to two tablets every 3 hours as needed for pain. 6. Chlorthalidone 25 mg p.o. daily. 7. Colchicine 0.6 mg p.o. daily. 8. Lisinopril 30 mg p.o. b.i.d. 9. Vitamin B12 1000 mcg p.o. daily. 10. Coumadin 2 mg p.o. q. 5 p.m. daily, 1 to 3 tablets per physician's instructions. CONDITION ON DISCHARGE: Stable. DISCHARGE INSTRUCTIONS: Ms. Deng is a very pleasant 76-year-old female postoperative day 3, who is orthopedically and medically stable for discharge to home. Her labs and vital signs are stable. She restarted her home medications. She will take 4 mg of Coumadin on the , , and and will have an INR redraw on 01/13/17. She will have INR draws every Friday and with [facility]. She will remain weightbearing as tolerated on the left lower extremity. She will have home physical therapy twice a week and she will take Percocet as needed for pain control. She will take Colace up to 3 times a day for constipation. She will [facility] for incision check and suture removal. She was instructed to go immediatel y to the ER should she develop chest pain or shortness of breath. Should she develop fever, increas ing pain or redness, she is to call the office immediately. She is also instructed that that if bru ising around her ankle appears to extend or worsen, she is to call the office immediately. She had no other questions or concerns. LILLIAM FU [id number]/[facility] #: [id number]
== END 2017-01-10 14:05 | disposition home health service (06) | DRG 470 ==
LOC: AA 01-07 08:50 → SSU 01-07 14:56
PROVIDERS: ADMIT Orthopaedic Surgery Adult Reconstructive Orthopaedic Surgery; ATTEND Orthopaedic Surgery Adult Reconstructive Orthopaedic Surgery
PROC: 0SRD0J9 Replacement of Left Knee Joint with Synthetic Substitute, Cemented, Open Approach (ICD-10-PCS; principal; 2017-01-07 11:15)
DX: M17.12 Unilateral primary osteoarthritis, left knee (principal); E87.1 Hypo-osmolality and hyponatremia; I10 Essential (primary) hypertension; D62 Acute posthemorrhagic anemia; M10.9 Gout, unspecified; R60.0 Localized edema; Z79.01 Long term (current) use of anticoagulants; Z82.49 Family history of ischemic heart disease and other diseases of the circulatory system; Z82.3 Family history of stroke; Z80.8 Family history of malignant neoplasm of other organs or systems; Z88.0 Allergy status to penicillin; R11.0 Nausea; Z88.1 Allergy status to other antibiotic agents
CPT/HCPCS: 36415; 80048; 85014; 85018; 85610; 88305; 88311; A9270-GY; C1776; J1100; J1170; J1650; J2250; J2270; J2405; J2704; J3010

== ENCOUNTER 2018-07-01 22:41 | Emergency (ER) | payer MEDICARE ==
--- NOTE | 2018-07-01 22:53 | ED ---
Neurological HPI - HPI Summary HPI Summary: Patient is a 78 y/o F brought in by ambulance to ED with right facial droop, right sided weakness, aphasia and dysarthria. Provider to evaluate patient immediately upon arrival at 2240. Patient last known well was 1400. EMS was called for fall, EMS reports she was found on the floor of home by son about an hour ago. Kelvin theodore called at 2242. Home medications and allergies are reviewed. Level 5 caveat. - History of Current Complaint Stated Complaint: WEAKNESS Time Seen by Provider: 07/01/18 22:47 Hx Obtained From: EMS Hx From Patient Unobtainable Due To: Other - level 5 caveat, patient is aphasic and dysarthric Onset/Duration: Started hours ago - found on floor an hour ago, Still Present Timing: Constant Current Severity: Severe Neurological Deficit Location: Facial - right, RUE, RLE Pain Intensity: 2 Pain Scale Used: 0-10 Numeric - 2/10 on triage Character: Motor Weakness - right sided, Impaired Speech - aphasia and dysarthria, Other: - right facial droop Aggravating: Nothing Alleviating: Nothing Associated Signs and Symptoms: Positive: Weakness - right, Impaired Speech - aphasia and dysarthria - Additional Pertinent History Primary Care Physician: [id number] - Allergy/Home Medications Allergies/Adverse Reactions: Allergies Allergy/AdvReac Type Severity Reaction Status Date / Time MS Levofloxacin Allergy Severe Hives Verified 01/01/17 12:15 [From Levaquin] MS Penicillins [Penicillins] Allergy Severe Hives Verified 01/01/17 12:15 MS Petrolatum [From Vaseline] AdvReac Intermediate dries out Verified 01/01/17 12:15 skin - cracks PMH/Surg Hx/FS Hx/Imm Hx Endocrine/Hematology History: Reports: Hx Thyroid Disease - thyroid nodules Cardiovascular History: Reports: Hx Hypertension Musculoskeletal History: Reports: Hx Arthritis, Hx Bursitis - feet/ bone spurs on heels, Hx Tendonitis - elbow, Other Musculoskeletal History - frozen shoulder joint Sensory History: Reports: Hx Contacts or Glasses Denies: Hx Hearing Aid Opthamlomology History: Reports: Hx Contacts or Glasses - Cancer History Hx Chemotherapy: No - Surgical History Surgery Procedure, Year, and Place: APPENDECTOMY 2008 Hx Anesthesia Reactions: No Infectious Disease History: Denies: Traveled Outside the [place] in Last 30 Days - Family History Known Family History: Negative: Blood Disorder - Social History Alcohol Use: None Substance Use Type: Reports: None Smoking Status (MU): Never Smoked Tobacco Review of Systems - ROS Summary Review of Systems Summary: level 5 caveat - patient is aphasic and dysarthric Negative: Fever - on vitals, temp is 99.2 F Neurological: Other - dysarthria Positive: Weakness - right sided weakness, right facial droop, Syncope, Slurred Speech - aphasia All Other Systems Reviewed And Are Negative: No - Comments Additional Review of Systems Comments: level 5 caveat - patient is aphasic and dysarthric Physical Exam - Summary Physical Exam Summary: VITAL SIGNS: Reviewed. GENERAL: Patient is a well-developed and nourished female who is lying comfortable in the stretcher. Patient is not in any acute respiratory distress. HEAD AND FACE: No signs of trauma. No ecchymosis, hematomas or skull depressions. No sinus tenderness. EYES: PERRLA, EOMI x 2, No injected conjunctiva, no nystagmus. EARS: Hearing grossly intact. Ear canals and tympanic membranes are within normal limits. MOUTH: Oropharynx within normal limits. NECK: Supple, trachea is midline, no adenopathy, no JVD, no carotid bruit, no c- spine tenderness, neck with full ROM. CHEST: Symmetric, no tenderness at palpation LUNGS: Clear to auscultation bilaterally. No wheezing or crackles. CVS: Regular rate and rhythm, S1 and S2 present, no murmurs or gallops appreciated. ABDOMEN: Soft, non-tender. No signs of distention. No rebound no guarding, and no masses palpated. Bowel sounds are normal. EXTREMITIES: FROM in all major joints, no edema, no cyanosis or clubbing. NEURO: NIH 17, see stroke scale SKIN: Dry and warm Triage Information Reviewed: Yes Vital Signs On Initial Exam: Initial Vitals Temp Pulse Resp BP Pulse Ox 99.2 F 78 16 141/78 95 07/01/18 23:07 07/01/18 23:07 07/01/18 23:07 07/01/18 23:07 07/01/18 23:07 Vital Signs Reviewed: Yes Diagnostics - Laboratory Result Diagrams: 07/01/18 23:10 07/01/18 23:10 Lab Statement: Any lab studies that have been ordered have been reviewed, and results considered in the medical decision making process. - CT BRAIN CT CT Interpretation Completed By: Radiologist Summary of CT Findings: IMPRESSION: 1. Mild hyperdensity involving the proximal left MCA. If there is clinical. concern for acute left MCA infarction , MRI/MRA may be considered. 2. No acute intracranial hemorrhage. This report was reviewed by ED physician. HEAD CTA CT Interpretation Completed By: Radiologist Summary of CT Findings: IMPRESSION: 1. No hemodynamically significant stenosis. 2. Right thyroid mass measuring at least 5.3 cm. Ultrasound with biopsy may be. considered. THIS REPORT WAS REVIEWED BY ED PHYSICIAN. - EKG 2310 Cardiac Rate: NL - rate of 76 BPM EKG Rhythm: Sinus Rhythm Summary of EKG Findings: EKG: sinus rhythm with rate of 76 BPM. PACs, nonspecific intraventricular conduction delay. NIH Scale - NIH Scale Level of Consciousness: Alert/Keenly Responsive Ask Patient the Month and His/Her Age: Neither Correct/Aphasic Ask Pt to Open/Close Eyes and [place] Cutter/Release Non-Paretic Hand: Both Correctly Best Gaze (Only Horizontal Eye Movement): Partial Gaze Palsy Visual Field Testing: No Visual Loss Facial Paresis-Pt to Smile & Close Eyes or Grimace Symmetry: Complete Paralysis Motor Function - Right Arm: No Movement Motor Function - Left Arm: No Drift-Holds 10 Seconds Motor Function - Right Leg: No Movement Motor Function - Left Leg: No Drift-Holds 10 Seconds Limb Ataxia-Must be out of Proportion to Weakness Present: Present in One Limb Sensory (Use Pinprick to Test Arms/Legs/Trunk/Face): Normal Best Language (Describe Picture, Name Items): Some Loss Dysarthria (Read Several Words): Slurs Some Words Extinction and Inattention: No Abnormality Total Score: 17 Re-Evaluation - Re-Evaluation First Eval Re-Evaluation Time: 13:10 Comment: Patient's son arrived in ED. Son states that patient lives alone, stopped by at 1400 today, patient was doing fine. Later, he texted and called patient but she was not responding. He stopped by the patient's hosue and found her on floor. He states that lights were on in the house and patient might have been fine until 1700/1800, around when it gets dark. Course/Dx - Course Course Of Treatment: Patient is a 78 y/o F brought in by ambulance to ED with right facial droop, right sided weakness, aphasia and dysarthria. Patient last known well was 1400. Patient's son arrived later in ED. Son states that patient lives alone, stopped by at 1400 today, patient was doing fine. Later, he texted and called patient but she was not responding. He stopped by the patient's hosue and found her on floor. He states that lights were on in the house and patient might have been fine until 1700/1800, around when it gets dark. On physical exam, patient has NIH of 17, see above. Labs showed WBC 14.2, APTT 20.2, INR 0.89, creatinine 0.98, glucose 139, lactic acid 1.7, alk phos 155, trop 0.01. EKG: sinus rhythm with rate of 76 BPM. PACs, nonspecific intraventricular conduction delay. BRAIN CT IMPRESSION: 1. Mild hyperdensity involving the proximal left MCA. If there is clinical. concern for acute left MCA infarction, MRI/MRA may be considered. 2. No acute intracranial hemorrhage. HEAD CTA IMPRESSION: 1. No hemodynamically significant stenosis. 2. Right thyroid mass measuring at least 5.3 cm. Ultrasound with biopsy may be. considered. Transfer process was initiated, Dr. Amor spoke with Dr. Morrow from [facility] at [address]. Dr. Morrow accepts patient for transfer, states that they will active interventional neurology team. Patient will be transferred via helicopter. Dx of left CVA. - Diagnoses Provider Diagnoses: Left-sided cerebrovascular accident (CVA) During the Visit The Following Alert/Code Occurred: Code Rico - 2242 - Physician Notifications Discussed Care Of Patient With: Uche Morrow Time Discussed With Above Provider: 23:38 Instructed by Provider To: Other - Transfer process was initiated, Dr. Amor spoke with Dr. Morrow from [facility] at 2338. Dr. Morrow accepts patient for transfer, states that they will active interventional neurology team. [id number] - Dr. Morrow called back, discussed that patient will be transferred via helicopter. - Critical Care Time Critical Care Time: 30-74 min - 50 minutes Discharge - Sign-Out/Discharge Documenting (check all that apply): Patient Departure - TRANSFER - Discharge Plan Condition: Good Disposition: TRANS HIGHER LVL OF CARE FAC Referrals: Wali Degroot MD [Primary Care Provider] - - Billing Disposition and Condition Condition: GOOD Disposition: Trans Higher Lvl of Care Fac - Attestation Statements Document Initiated by Scribe: Yes Documenting Scribe: JOHANNE LEE Provider For Whom Hemanth is Documenting (Include Credential): PAN AMOR MD Scribe Attestation: I, JOHANNE LEE , scribed for PAN AMOR MD on 07/02/18 at 0001. Scribe Documentation Reviewed: Yes Provider Attestation: The documentation as recorded by the JOHANNE terrell accurately reflects the service I personally performed and the decisions made by me, PAN AMOR MD
[2018-07-01] MEDS ORDERED: Iodixanol* (CONTRAST) 320 MG/ML 100 ML SDV IV ONE (22:59)
[2018-07-01 23:19] LABS: ABS Basophils 0 10^3/ul (0-0.2); ABS Eosinophils 0 10^3/ul (0-0.6); ABS Lymphocytes 0.6 10^3/ul (1.0-4.8); ABS Monocytes 0.4 10^3/ul (0-0.8); ABS Neutrophils 13.2 10^3/ul (1.5-7.7); ABS Nucleated RBC 0 10^3/ul; Eosinophil % 0.1 % (0-6); Hematocrit 38 % (35-47); Hemoglobin 12.4 g/dl (12.0-16.0); Lymphocyte % 4.3 % (25-47); Mean Corpuscular HGB Conc 32 g/dl (31-36); Mean Corpuscular Hemoglobin 28 pg (27-31); Mean Corpuscular Volume 86 fL (80-97); Mean Platelet Volume 8.4 fL (7.4-10.4); Nucleated Red Blood Cells % 0; Platelet Count 313 10^3/ul (150-450); Red Blood Count 4.46 10^6/ul (4.00-5.40); Red Cell Distribution Width 17 % (10.5-15); White Blood Count 14.2 10^3/ul (3.5-10.8)
[2018-07-01 23:29] LABS: INR 0.89 (0.77-1.02)
[2018-07-02 00:32] VITALS: BP 126/93
[2018-07-02] MEDS ORDERED: Ondansetron INJ* 2 MG/ML VIAL ONE (00:40)
[2018-07-02] MEDS ORDERED: Ondansetron INJ* 2 MG/ML VIAL IV ONE (00:40)
[2018-07-02] MEDS ORDERED: Promethazine INJ(RESTRICTED)* 25 MG/ML 1 ML VIAL IM ONE (00:41)
== END 2018-07-02 00:49 | disposition short-term general hospital (02) ==
LOC: ED 22:41
DX: I69.354 Hemiplegia and hemiparesis following cerebral infarction affecting left non-dominant side (principal); I63.9 Cerebral infarction, unspecified; Z88.0 Allergy status to penicillin; R53.1 Weakness; R47.01 Aphasia; R47.1 Dysarthria and anarthria; I10 Essential (primary) hypertension
CPT/HCPCS: 36415; 70450; 70496; 70498; 80053; 82550; 83605; 84484; 85025; 85610; 85730; 86850; 86900; 86901; 93005; 96372; 96374; 96375; 99285; J2405; J2550; Q9967

== ENCOUNTER 2019-07-21 10:29 | Observation (INO) | payer MEDICARE ==
--- OUTSIDE RECORDS SUMMARY | 2019-07-21 10:42 | XMS REPORT | Continuity of Care Document ---
:1940 External Reference #:[id number] Author Name Mary Jo Veloz M.D. (transmitted by agent of provider Mariah Chow) Address [address] [place] [id number] Care Team Providers Name Role Phone Wali Degroot M.D. 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 Onset: 06/30/2015 Chronic atrial fibrillation, unspecified Nghia Krishnamurthy M.D. Onset: 2018 Essential hypertension Nghia Krishnamurthy M.D. Onset: 07/05/2019 Cerebral artery occlusion Nghia Krishnamurthy M.D. Onset: 07/05/2019 Social History Type Date Description Comments Sex Unknown Tobacco Use Start: Unknown Never Smoked Cigarettes Smoking Status Reviewed: 07/12/19 Never Smoked Cigarettes ETOH Use Denies alcohol use Tobacco Use Start: Unknown Patient has never smoked Recreational Drug Use Denies Drug Use Exercise Type/Frequency Exercises rarely Allergies, Adverse Reactions, Alerts Active Allergies Reaction Severity Comments Date Penicillin 06/30/2015 Petroleum Preparation 10/24/2018 Medications Active Medications SIG Qnty Indications Ordering Date Provider Atenolol 1 by mouth every 90tabs Unknown 25mg Tablets day Diltiazem HCL 1 by mouth four 180tabs Unknown 60mg Tablets times a day Lipitor 1 by mouth every Unknown 80mg Tablets day Bisacodyl Ec take one tablet Unknown 5mg Tablets DR by mouth every other day. hold for loose or frequent stools Potassium Chloride Jodi 2 by mouth every Unknown ER day 20Meq Tablets ER Furosemide 1 by mouth every Unknown 40mg Tablets day Doxazosin Mesylate 1 by mouth every Unknown 2mg day Tablets Miralax 1 scoop in fluid Unknown 3350NF Powder by mouth every day as needed Protonix 1 by mouth every Unknown 40mg Tablets DR day Phenazopyridine HCL 1 tablet by Unknown 100mg mouth three Tablets times a day as needed Zoloft 1 by mouth every Unknown 50mg Tablets day Trazodone HCL 1/2 by mouth Unknown 50mg Tablets every day at hs Zofran as needed Unknown Chlorthalidone daily Unknown Eliquis 2 by mouth per Unknown 5mg Tablets day Medications Administered in Office Medication SIG Qnty Indications Ordering Provider Date Depomedrol 40MG Mary Jo Veloz M.D. 04/10/2018 Injection Depomedrol 40MG Mary Jo Veloz M.D. 01/09/2018 Injection Depomedrol 40MG Mary Jo Veloz M.D. 10/31/2017 Injection Depomedrol 40MG Mary Jo Veloz M.D. 05/28/2017 Injection Depomedrol 40MG Mary Jo Veloz M.D. 02/21/2017 Injection Depomedrol 40MG Mary Jo Veloz M.D. 11/29/2016 Injection Depomedrol 40MG Mary Jo Veloz M.D. 10/02/2016 Injection Depomedrol 40MG Mary Jo Veloz M.D. 07/01/2016 Injection Depomedrol 40MG Mary Jo Veloz M.D. 04/08/2016 Injection Depomedrol 40MG Mary Jo Veloz M.D. 01/08/2016 Injection Depomedrol 40MG Mary Jo Veloz M.D. 10/09/2015 Injection Depomedrol 80MG Mary Jo Veloz M.D. 06/30/2015 Injection Immunizations Description No Information Available Vital Signs Date Vital Result Comment 07/12/2019 3:13pm Height 63.5 inches 5'3.50" Weight 224.00 lb Heart Rate 65 /min BP Systolic Sitting 122 mmHg BP Diastolic Sitting 78 mmHg Respiratory Rate 18 /min Pain Level 4 O2 % BldC Oximetry 98 % BMI (Body Mass Index) 39.1 kg/m2 07/05/2019 3:01pm Height 63.5 inches 5'3.50" Weight 224.00 lb Heart Rate 62 /min BP Systolic 112 mmHg BP Diastolic 86 mmHg BMI (Body Mass Index) 39.1 kg/m2 Results Description No Information Available Procedures Date Code Description Status 07/12/2019 04949 Inject/Drain Joint/Bursa Major W/O US Completed 03/05/2019 44536 ECHO Transthoracic, Real-Time 2D With Doppler And Color Completed Flow 03/05/2019 62083 ECHO Transthoracic, Real-Time 2D With Doppler And Color Completed Flow 02/11/2019 80470 EKG, Interpretation Only Completed Medical Devices Description No Information Available Encounters Type Date Location Provider Dx Diagnosis Office Visit 07/12/2019 [facility] Mary Jo Veloz, M17.11 Unilateral primary 3:00p at [place] osteoarthritis, right knee M25.561 Pain in right knee Office Visit 05/20/2019 11:15a [facility] I10 Essential (primary) Cardiology [place] Hennessy hypertension I48.91 Unspecified atrial fibrillation I48.20 Chronic atrial fibrillation, unspecified Office Visit 03/29/2019 [facility] G47.33 Obstructive sleep 10:00a [facility] apnea (adult) [facility] (pediatric) Office Visit 02/12/2019 [facility] G47.33 Obstructive sleep 9:30a [facility] apnea (adult) [facility] (pediatric) Office Visit 02/11/2019 [facility] I48.2 Chronic atrial 10:00a Cardiology [place]ene Hennessy fibrillation I10 Essential (primary) hypertension Assessments Date Code Description Provider 07/12/2019 M17.11 Unilateral primary osteoarthritis, right Mary Jo Veloz M.D. knee 07/12/2019 M25.561 Pain in right knee Mary Jo Veloz M.D. 07/05/2019 I63.9 Cerebral infarction, unspecified Nghia Krishnamurthy M.D. 07/05/2019 I48.20 Chronic atrial fibrillation, unspecified Nghia Krishnamurthy M.D. 07/05/2019 I10 Essential (primary) hypertension Nghia Krishnamurthy M.D. 05/20/2019 I10 Essential (primary) hypertension Chele Hennessy M.D. 05/20/2019 I48.91 Atrial fibrillation Chele Hennessy M.D. 05/20/2019 I48.20 Chronic atrial fibrillation, unspecified Chele Hennessy M.D. 03/29/2019 G47.33 Obstructive sleep apnea (adult) (pediatric) [facility] NP 03/05/2019 I48.2 Chronic atrial fibrillation Chele Hennessy M.D. 03/05/2019 I48.2 Chronic atrial fibrillation Traveling ECHO 1 02/12/2019 G47.33 Obstructive sleep apnea (adult) (pediatric) [facility] NP 02/11/2019 I48.2 Chronic atrial fibrillation Chele Hennessy M.D. 02/11/2019 I10 Essential (primary) hypertension Chele Hennessy M.D. Plan of Treatment Future Appointment(s):01/03/2020 10:15 am - Nghia Krishnamurthy M.D. at [facility]07/12/2019 - Mary Jo Veloz M.D.M17.11 Unilateral primary osteoarthritis, right kneeFollow up:Follow up: 3 pkeheyR54.561 Pain in right kneeNew Xrays:Kneeright 4+ VWS, Ordered: 07/12/19 Functional Status Description No Information Available Mental Status Description No Information Available Referrals Description No Information Available
--- OUTSIDE RECORDS SUMMARY | 2019-07-21 10:43 | XMS REPORT | Continuity of Care Document ---
:1940 External Reference #:[id number] Author Name Nghia Krishnamurthy M.D. (transmitted by agent of provider Maria E Beard ) Address [address], [place] [address] Care Team Providers Name Role Phone Wali Degroot M.D. - Family Medicine Care Team Information Community Education Coordinator [phone] Problems Active Problems Provider Date Localized, primary osteoarthritis Mary Jo Veloz M.D. Onset: 06/30/2015 Chronic atrial fibrillation, unspecified Nghia Krishnamurthy M.D. Onset: 2018 Essential hypertension Ngiha Krishnamurthy M.D. Onset: 07/05/2019 Cerebral artery occlusion Nghia Krishnamurthy M.D. Onset: 07/05/2019 Social History Type Date Description Comments Sex Unknown Tobacco Use Start: Unknown Never Smoked Cigarettes Smoking Status Reviewed: 07/05/19 Never Smoked Cigarettes ETOH Use Denies alcohol [...] 40MG Mary Jo Veloz M.D. 11/29/2016 Injection Depdenisserol 40MG Mary Jo Veloz M.D. 10/02/2016 Injection Depomedrol 40MG Mary Jo Veloz M.D. 07/01/2016 Injection Depomedrol 40MG Mary Jo Veloz M.D. 04/08/2016 Injection Depomedrol 40MG Mary Jo Veloz M.D. 01/08/2016 Injection Depomedrol 40MG Mary Jo Veloz M.D. 10/09/2015 Injection Depomedrol 80MG Mary Jo Veloz M.D. 06/30/2015 Injection Immunizations Description No Information Available Vital Signs Date Vital Result Comment 07/05/2019 3:01pm Height 63.5 inches 5'3.50" Weight 224.00 lb Heart Rate 62 /min BP Systolic 112 mmHg BP Diastolic 86 mmHg BMI (Body Mass Index) 39.1 kg/m2 05/20/2019 10:54am Weight 226.00 lb Heart Rate 67 /min BP Systolic Sitting 122 mmHg left-large BP Diastolic Sitting 86 mmHg left-large Respiratory Rate 20 /min Body Temperature 97.8 F O2 % BldC Oximetry 98 % Results Description No Information Available Procedures Date Code Description Status 03/05/2019 34507 ECHO Transthoracic, Real-Time 2D With Doppler And Color Completed Flow 03/05/2019 86618 ECHO Transthoracic, Real-Time 2D With Doppler And Color Completed Flow 02/11/2019 28529 EKG, Interpretation Only Completed Medical Devices Description No Information Available Encounters Type Date Location Provider Dx Diagnosis Office Visit 07/05/2019 [facility] Nghia Krishnamurthy, I63.9 Cerebral 3:00p [facility] [place] [place] infarction, unspecified I48.20 Chronic atrial fibrillation, unspecified I10 Essential (primary) hypertension Office Visit 05/20/2019 11:15a [facility] I10 Essential (primary) Cardiology Ilene Hennessy hypertension I48.91 Unspecified atrial fibrillation I48.20 Chronic atrial fibrillation, unspecified Office Visit 03/29/2019 [facility] G47.33 Obstructive sleep 10:00a [facility] apnea (adult) [facility] (pediatric) Office Visit 02/12/2019 [facility] G47.33 Obstructive sleep 9:30a [facility] apnea (adult) [facility] (pediatric) Office Visit 02/11/2019 [facility] I48.2 Chronic atrial 10:00a Cardiology Ilene Hennessy fibrillation I10 Essential (primary) hypertension Assessments Date Code Description Provider 07/05/2019 I63.9 Cerebral infarction, unspecified Nghia Krishnamurthy [...] 10:15 am - Nghia Krishnamurthy M.D. at [facility]07/05/2019 - Nghia Krishnamurthy M.D.I63.9 Cerebral infarction, unspecifiedFollow up:Follow up in 6 monthsRecommendations:Sign CHANDA for records from [place] [address].20 Chronic atrial fibrillation, [id number] Essential (primary) hypertension Functional Status Description No Information Available Mental Status Description No Information Available Referrals Description No Information Available
[2019-07-21] MEDS ORDERED: NS 0.9% 1000 ML** 1,000 ML IV ONE (11:15)
--- NOTE | 2019-07-21 11:21 | ED ---
Syncope/Near Syncope - HPI Summary HPI Summary: The patient is a 79 y/o F arriving by ambulance to [facility] accompanied by daughter and lead presser with a chief complaint of syncopal event this morning. Per home lead presser who witnessed the event, the patient had just come out of the bathroom when she became diaphoretic and pale. She sat down on the arm of the cough nearby when she became flaccid and unresponsive for a minute before returning to baseline. The patient states that she could hear what was happening but could not respond. She did not fall or hit her head. She is not in any pain now, but she feels fatigued. The lead presser was concerned for a siezure, but the patient's body did not shake or become rigid. 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 PMHx: thyroid disease, HTN, arthritis. Nonsmoker, no EtOH, no substance use. Medications reviewed. Allergies noted. - History Of Current Complaint Chief Complaint: EDSeizure Time Seen by Provider: 07/21/19 11:04 Hx Obtained From: Patient, Family/Diplomatic Officer Onset/Duration: Sudden Onset, Lasting Minutes - one, Resolved Timing: Frequency Of Episodes - once Context: Witnessed Activity At Onset: Other - ambulating but then sat down Associated Head Trauma: No Aggravating Factor(s): Nothing Alleviating Factor(s): Nothing Associated Signs And Symptoms: Diaphoresis, Other - fatigue, pale (resolved), unsresponsive (resolved), flaccid body (resolved); chest pain, abdominal pain - Allergies/Home Medications Allergies/Adverse Reactions: Allergies Allergy/AdvReac Type Severity Reaction Status Date / Time levofloxacin AdvReac Hives Verified 07/21/19 11:32 Penicillins AdvReac Hives Verified 07/21/19 11:32 petrolatum,white AdvReac See Comment Verified 07/21/19 11:32 [From Vaseline] Home Medications: Home Medications Apixaban* [Eliquis*] 5 mg PO BID 07/21/19 [History Confirmed 07/21/19] Atenolol TAB* [Tenormin TAB* 25 MG] 25 mg PO DAILY 07/21/19 [History Confirmed 07/21/19] Atorvastatin* [Lipitor*] 80 mg PO DAILY 07/21/19 [History Confirmed 07/21/19] Bisacodyl EC TAB* [Dulcolax EC TAB*] 5 mg PO EVERY OTHER DAY PRN 07/21/19 [ History Confirmed 07/21/19] Doxazosin TAB* [Cardura TAB*] 2 mg PO DAILY 07/21/19 [History Confirmed 07/21/19 ] Furosemide TAB* [Lasix TAB*] 40 mg PO DAILY 07/21/19 [History Confirmed 07/21/19 ] Ondansetron TAB* [Zofran 4 MG Tab*] 4 mg PO Q6H PRN 07/21/19 [History Confirmed 07/21/19] Pantoprazole TAB * [Protonix TAB*] 40 mg PO DAILY 07/21/19 [History Confirmed ] Phenazopyridine TAB* [Pyridium 100 mg TAB*] 100 mg PO TID PRN 07/21/19 [History Confirmed 07/21/19] Polyethylene Glycol 3350* [Miralax*] 17 gm PO DAILY PRN 07/21/19 [History Confirmed 07/21/19] Potassium Chlor TAB* [Klor Con ER TAB*] 40 meq PO DAILY 07/21/19 [History Confirmed 07/21/19] Sertraline* [Zoloft*] 50 mg PO DAILY 07/21/19 [History Confirmed 07/21/19] dilTIAZem HCl [Diltiazem 24Hr ER] 240 mg PO DAILY 07/21/19 [History Confirmed ] traZODone TAB* [Desyrel TAB*] 25 mg PO BEDTIME 07/21/19 [History Confirmed 07/21] PMH/Surg Hx/FS Hx/Imm Hx Endocrine/Hematology History: Reports: Hx Thyroid Disease - thyroid nodules Denies: Hx Diabetes Cardiovascular History: Reports: Hx Hypertension Denies: Hx Hypercholesterolemia History: Denies: Hx Renal Disease Musculoskeletal History: Reports: Hx Arthritis, Hx Bursitis - feet/ bone spurs on heels, Hx Tendonitis - elbow, Other Musculoskeletal History - frozen shoulder joint Sensory History: Reports: Hx Contacts or Glasses Denies: Hx Hearing Aid Opthamlomology History: Reports: Hx Contacts or Glasses - Cancer History Hx Chemotherapy: No - Surgical History Surgery Procedure, Year, and Place: APPENDECTOMY 2008 Hx Anesthesia Reactions: No Infectious Disease History: No Infectious Disease History: Denies: Traveled Outside the [place] in Last 30 Days - Family History Known Family History: Negative: Blood Disorder - Social History Alcohol Use: None Substance Use Type: Reports: None Smoking Status (MU): Never Smoked Tobacco Review of Systems Positive: Fatigue, Skin Diaphoresis Negative: Chest Pain Negative: Abdominal Pain Positive: Other - flaccid body (resolved) Positive: Other - pale (resolved) Neurological: Other - unresponsive (resolved) Positive: Syncope. Negative: Headache All Other Systems Reviewed And Are Negative: Yes Physical Exam - Summary Physical Exam Summary: VITAL SIGNS: Reviewed. GENERAL: Patient is a well-developed and nourished elderly female who is lying comfortable in the stretcher. Patient is not in any acute respiratory distress. HEAD AND FACE: No signs of trauma. No ecchymosis, hematomas or skull depressions. No sinus tenderness. EYES: PERRLA, EOMI x 2, No injected conjunctiva, no nystagmus. No photophobia. EARS: Hearing grossly intact. Ear canals and tympanic membranes are within normal limits. MOUTH: Oropharynx within normal limits. NECK: Supple, trachea is midline, no adenopathy, no JVD, no carotid bruit, no c- spine tenderness, neck with full ROM. No meningeal signs, no Kernig's or brudzinskis signs. CHEST: Symmetric, no tenderness at palpation. LUNGS: Clear to auscultation bilaterally. No wheezing or crackles. CVS: Regular rate and rhythm, S1 and S2 present, no murmurs or gallops appreciated. ABDOMEN: Soft, non-tender. No signs of distention. No rebound, no guarding, and no masses palpated. Bowel sounds are normal. EXTREMITIES: FROM in all major joints, no edema, no cyanosis or clubbing. NEURO: Alert and oriented x 3. Right-sided weakness subsequent and consistent with previous CVA. No acute neurological deficits. Speech is normal and follows commands. SKIN: Dry and warm. GCS: 15. Triage Information Reviewed: Yes Vital Signs On Initial Exam: Initial Vitals Temp Pulse Resp BP Pulse Ox 98.1 F 69 18 126/71 98 07/21/19 10:56 07/21/19 10:56 07/21/19 10:56 07/21/19 10:56 07/21/19 10:56 Vital Signs Reviewed: Yes - Alexis Coma Scale Best Eye Response: 4 - Spontaneous Best Motor Response: 6 - Obeys Commands Best Verbal Response: 5 - Oriented Coma Scale Total: 15 Procedures - Sedation Patient Received Moderate/Deep Sedation with Procedure: No Diagnostics - Vital Signs Vital Signs Temp Pulse Resp BP Pulse Ox 07/21/19 11:06 64 98 07/21/19 11:04 64 126/71 98 07/21/19 10:56 98.1 F 69 18 126/71 98 - Laboratory Result Diagrams: 07/22/19 04:52 07/23/19 04:26 Lab Statement: Any lab studies that have been ordered have been reviewed, and results considered in the medical decision making process. - Radiology Chest X-Ray Radiology Interpretation Completed By: Radiologist Summary of Radiographic Findings: Impression: 1. Cardiomegaly without evidence for pulmonary edema. 2. Probable obstructive lung disease. No acute pulmonary process evident. ED physician has reviewed this report. - CT Brain CT CT Interpretation Completed By: Radiologist Summary of CT Findings: Impression: 1. No acute intracranial abnormality identified. 2. Old infarcts left frontal lobe and left basal ganglia. ED physician has reviewed this report. - EKG 1214 Cardiac Rate: Bradycardia - 47 BPM EKG Rhythm: Sinus Bradycardia Summary of EKG Findings: EKG at 1214 reveals sinus bradycardia at [address] elevations. ED physician has reviewed and interpreted this EKG. Re-Evaluation - Re-Evaluation First Eval Re-Evaluation Time: 13:15 Comment: We discussed the results and plan for admission. Course/Dx Assessment/Plan: This patient is a 79-year-old female who presents to the emergency department via ambulance with chief complaint of having a seizure versus a syncopal episode. Past medical history significant for. Hypertension, dyslipidemia, melanoma, basal cell carcinoma of the nose, gout, CVA with right- sided weakness. Blood test results without any significant abnormality except for INR of 1.42, potassium of 3.3, chloride of 99, BUN of 40, creatinine of 1.40 , glucose of 104, magnesium of 1.8, and alkaline phosphatase of 192. Chest x- ray impression: Cardiomegaly without any other acute abnormality. Head CT impression: No acute intracranial abnormality identified. Old infarcts left frontal lobe and left basal ganglia. I was informed by the primary nurse that the patient had one episode of bradycardia. EKG: Sinus bradycardia of 47 bpm. At this point in the ED course, the patient was given potassium chloride and magnesium. I discussed my physical exam and test results with Dr. Campo from the hospitalist services and he agrees to admit the patient to his services. The patient is hemodynamically stable alert and oriented x 3. - Diagnoses Differential Diagnosis/HQI/PQRI: Positive: Cerebral Vascular Accident, Dysrhythmia Provider Diagnoses: Syncope - Physician Notifications Discussed Care of Patient With: Mani Campo - hospitalist Time Discussed With Above Provider: 13:08 Instructed by Provider To: Other - I discussed the patient's case with Dr. Campo, and he accepts the patient for admission. Discharge ED - Sign-Out/Discharge Documenting (check all that apply): Patient Departure - Patient accepted for admission by Dr. Campo. - Discharge Plan Condition: Stable Disposition: ADMITTED TO [facility] - Billing Disposition and Condition Condition: STABLE Disposition: Admitted to [facility] - Attestation Statements Document Initiated by Alfredaibe: Yes Documenting Scribe: Claudia Noe Provider For Whom Hemanth is Documenting (Include Credential): Dr. Qasim Smith MD Scribe Attestation: IClaudia, scribed for Dr. Qasim Smith MD on 07/23/19 at 0755. Scribe Documentation Reviewed: Yes Provider Attestation: The documentation as recorded by the Claudia terrell accurately reflects the service I personally performed and the decisions made by me, Dr. Qasim Smith MD Status of Scribe Document: Viewed
[2019-07-21 12:08] LABS: Hematocrit 41 % (35-47); Hemoglobin 13.2 g/dL (12.0-16.0); Red Blood Count 5.16 10^6 /uL (3.70-4.87); White Blood Count 9.7 10^3/uL (3.5-10.8)
[2019-07-21 12:09] LABS: ABS Eosinophils 0.1 10^3/ul (0-0.6); ABS Lymphocytes 1.2 10^3/ul (1.0-4.8); ABS Monocytes 0.4 10^3/ul (0-0.8); Eosinophil % 0.8 %; Mean Corpuscular HGB Conc 33 g/dL (31-36); Mean Corpuscular Hemoglobin 26 pg (27-31); Mean Corpuscular Volume 79 fL (80-97); Mean Platelet Volume 8.2 fL (7.4-10.4); Platelet Count 324 10^3/uL (150-450); Red Cell Distribution Width 18 % (10-15)
[2019-07-21 12:19] LABS: Activated Partial Thrombo Time 32.7 seconds (26.0-38.0); INR 1.42 (0.82-1.09)
[2019-07-21 12:26] LABS: ALT 11 U/L (7-52); AST 13 U/L (13-39); Albumin 4.4 g/dL (3.2-5.2); Albumin/Globulin Ratio 1.4 (1-3); Alkaline Phosphatase 192 U/L (34-104); Anion Gap 9 mmol/L (2-11); BUN/Creatinine Ratio 28.6 (8-20); Blood Urea Nitrogen 40 mg/dL (6-24); CO2 Carbon Dioxide 32 mmol/L (22-32); Calcium 10.1 mg/dL (8.6-10.3); Chloride 99 mmol/L (101-111); EGFR Non-African American 36.4 (>60); Globulin 3.1 g/dL (2-4); Glucose 104 mg/dL (70-100); Magnesium 1.8 mg/dL (1.9-2.7); Potassium 3.3 mmol/L (3.5-5.0); Sodium 140 mmol/L (135-145); Total Protein 7.5 g/dL (6.4-8.9)
[2019-07-21 12:28] LABS: Troponin I 0.01 ng/mL (<0.03)
[2019-07-21] MEDS ORDERED: Potassium Chlor TAB* 20 MEQ TAB.ER PO ONE (12:42)
[2019-07-21] MEDS ORDERED: Magnesium Oxide TAB* 400 MG PO ONE (12:42)
[2019-07-21 12:59] LABS: Alcohol < 10 mg/dL (<10)
[2019-07-21 13:09] LABS: Urine Appearance Clear; Urine Bilirubin Negative (Negative); Urine Blood 1+ (Negative); Urine Color Straw; Urine Glucose Negative (Negative); Urine Ketones Negative (Negative); Urine Nitrite Negative (Negative); Urine Protein Negative (Negative); Urine Specific Gravity 1.006 (1.010-1.030); Urine Urobilinogen Negative (Negative)
[2019-07-21 13:10] LABS: Urine Bacteria 1+ (Absent); Urine Red Blood Cell Trace(0-2/hpf) (Absent); Urine Squamous Epithelial Cell Present (Absent); Urine White Blood Cell 3+(>20/hpf) (Absent)
[2019-07-21 13:14] LABS: TSH (Thyroid Stimulating Horm) 2.36 mcIU/mL (0.34-5.60)
[2019-07-21] MEDS ORDERED: Ondansetron INJ* 2 MG/ML VIAL IV PRN (15:08)
[2019-07-21] MEDS ORDERED: Acetaminophen TAB* 325 MG PO PRN (15:08)
[2019-07-21] MEDS ORDERED: Al Hydrox/Mg Hydrox/Simet LIQ* 30 ML UDC PO PRN (15:08)
[2019-07-21] MEDS ORDERED: Senna TAB 8.6 mg* TAB PO PRN (15:08)
[2019-07-21] MEDS ORDERED: Polyethylene Glycol 3350* 17 GM PACKET PO PRN (15:12)
[2019-07-21] MEDS ORDERED: Phenazopyridine TAB* 100 MG PO PRN (15:12)
[2019-07-21] MEDS ORDERED: Bisacodyl EC TAB* 5 MG PO PRN (15:12)
[2019-07-21] MEDS ORDERED: Enoxaparin(*) 40 MG/0.4 ML SYR SUBCUT SCH (16:00)
--- NOTE | 2019-07-21 16:36 | HP ---
CC: Dr. Degroot * ADMISSION HISTORY AND PHYSICAL: DATE OF ADMISSION: 07/21/19 PRIMARY CARE PROVIDER: Dr. Degroot. ATTENDING PHYSICIAN WHILE IN THE HOSPITAL: Dr. Mani Campo * (dictated by LILLIAM Collado). CHIEF COMPLAINT: Episode of unresponsiveness. HISTORY OF PRESENT ILLNESS: Bisi Deng is a 79-year-old white female with past medical history significant for hypertension; CVA with residual right arm weakness; dysarthria; expressive aphasia; atrial fibrillation, on Eliquis; and severe CHRISTINE on CPAP, who presented to the emergency department today after an episode of unresponsiveness witnessed by her privately hired aide. She was having a normal day and was walking towards the door with her aide to leave the house to go to an appointment and before opening the door noted to her aide that she felt unwell suddenly. The patient tells me she is unable to specify what she meant by that, but said that she felt "off" compared to her normal. She did not experience any chest pain, difficulty breathing, abdominal pain, dizziness or lightheadedness leading up to this. She then was able to walk towards her couch and by that time the aide got her to the couch, she slumped over and was unresponsive for a total of approximately 1 minute. The patient's aide reports that while she was holding the patient in her arms, she felt the patient tensed her muscles, but did not observe overt convulsions. The patient and her aide and her family deny an episode of bowel or bladder incontinence. When the patient became responsive again after approximately 1 minute, she was regarding faces, but not answering questions and was not interacting appropriately. Several minutes later by the time the ambulance arrived, she was able to walk for the paramedics, but was apparently not walking with her normal gait. At this time, the patient is back to her normal baseline, answers questions appropriately. She is making jokes and has no confusion and her family endorses that she is at her baseline mental status. She denies abdominal pain, nausea, vomiting, chest pain difficulty breathing fever chills, dizziness , lightheadedness, visual changes, and headache. EMERGENCY DEPARTMENT COURSE: The patient arrived to the emergency department. Her vital signs were temperature 98.1, pulse rate was 69 beats per minute, respiratory rate 18, oxygen saturation 98% on room air, blood pressure 128/71. Later heart rate was 45 beats per minute. The patient was acting her normal self in the emergency department and the hospitalists were asked to evaluate the patient for admission. PAST MEDICAL HISTORY: 1. Hypertension. 2. Gout. 3. CVA with residual right arm weakness, dysarthria, expressive aphasia. 4. AFib, on Eliquis. 5. Osteoarthritis. 6. Questionable history of depression or anxiety as the patient is on Zoloft. 7. Severe CHRISTINE, on CPAP. 8. Possible history of urinary retention. PAST SURGICAL HISTORY: 1. Appendectomy. 2. Left knee replacement. HOME MEDICATIONS: 1. Eliquis 10 mg p.o. daily. 2. Chlorthalidone 25 mg p.o. daily. 3. Zofran 4 mg p.o. q.6 hours p.r.n. nausea and vomiting. 4. Trazodone 25 mg p.o. at bedtime. 5. Zoloft 50 mg p.o. daily. 6. Pyridium 100 mg p.o. t.i.d. p.r.n. pain. 7. Pantoprazole 40 mg p.o. daily. 8. MiraLAX 17 g p.o. daily p.r.n. constipation. 9. Doxazosin 2 mg p.o. daily. 10. Lasix 40 mg p.o. daily. 11. Potassium chloride 40 mEq p.o. daily. 12. Bisacodyl 5 mg p.o. every other day p.r.n. constipation. 13. Lipitor 80 mg p.o. daily. 14. Diltiazem 60 mg p.o. 4 times a day. 15. Atenolol 25 mg p.o. daily. ALLERGIES: Hives to LEVOFLOXACIN; hives to PENICILLIN; dry skin to VASELINE. FAMILY HISTORY: Mother had coronary artery disease. Father passed and had a stroke, did have confirmed history of VTE. SOCIAL HISTORY: The patient denies tobacco use, illicit drug use, and alcohol use. 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 She lives with her daughter and son-in-law. Her daughter, Erma Fox is her healthcare proxy. Her phone number is [phone]. REVIEW OF SYSTEMS: An 11-point review of systems was completed. All pertinent positives and negatives are above in the HPI; other systems are negative. PHYSICAL EXAMINATION GENERAL: An obese elderly white female lying in the hospital bed, appearing comfortable in no acute distress. HEENT: Eyes: PERRL, sclerae anicteric, no nystagmus. ENT: Mucous membranes are moist. LUNGS: Clear to auscultation throughout. CARDIO: Regular in rhythm without murmurs, rubs, or gallops. ABDOMEN: Normoactive bowel sounds x4 quadrants. Abdomen is soft, nontender, and nondistended without appreciable hepatosplenomegaly. EXTREMITIES: No clubbing, cyanosis, or edema. NEURO: The patient is alert and oriented x3. Minimal dysarthria and at times with expressive aphasia, which is at her baseline. Her face overall appears symmetrical, although there is small right drooping of her mouth, which the family states is baseline. Face is otherwise symmetrical. Sensation to light touch is grossly intact throughout. Tongue is midline. SKIN: Warm, dry, and intact. DIAGNOSTIC STUDIES/LAB DATA: White blood cell count 9.7, hemoglobin 13.2, hematocrit 41, platelet count 324. Sodium 140, potassium 3.3, chloride 99, carbon dioxide 32, anion gap 9, BUN 40, creatinine 1.4, glucose 104, lactic acid 1.8, magnesium 1.8. Bilirubin 0.5, AST 13, ALT 11, alk phos of 92. Urinalysis: Urine with +3 white blood cells, +1 leukocyte esterase, +1 urine bacteria, trace urine rbc's. Serum alcohol less than 10. Chest x-ray: Cardiomegaly without evidence of pulmonary edema. Probable obstructive lung disease. No acute pulmonary process evident. Brain CT: No acute intracranial abnormality identified. Old infarct in left frontal lobe and left basal ganglia. EK beats per minute, irregularly regular rhythm consistent with atrial fibrillation. No ST depressions or elevations. There is much artifact and it is difficult to appreciate if there are any T-wave changes, though it does not appear there are any T-wave inversions. ASSESSMENT AND PLAN: Narinder Deng is a 79-year-old white female with past medical history significant for cerebrovascular accident; atrial fibrillation, on Eliquis; severe obstructive sleep apnea, on CPAP; hypertension; gout; and possibly urinary retention, who presents to the emergency department after an episode of unresponsiveness. The patient will be admitted OBV for: 1. Episode of unresponsiveness. The etiology is unclear at this time. Seizure is on the differential given that the patient does have a history of stroke and it is quite possible that she was having non tonic clonic convulsions during her episode of unresponsiveness; however, it is unclear. I will order an EEG, though this may not be revealing. I do not believe that she is actively having seizure. She is at her baseline mental status. She is interacting appropriately. She is bradycardic in the emergency department and I do have a concern for cardiac etiology. This is less likely aortic stenosis or significant LV change and I will not order an echocardiogram at this time, as she appears without any respiratory status changes or any other sings of decompensation. She will be monitored on telemetry, perhaps her atenolol or her diltiazem dose should be adjusted to prevent this bradycardia. We will continue to monitor this. She was not initially bradycardic when she arrived. Additionally on the differential is vasovagal syncope. She was not orthostatic in the emergency department. She was feeling immediately unwell prior to this episode, which makes me wonder if this was vasovagal related to that feeling or perhaps this is a prodrome of a seizure, though it is unclear. 2. Atrial fibrillation. The patient is rate controlled at this time. As previously mentioned, perhaps her atenolol or diltiazem should be adjusted during this hospital stay. We will continue to monitor this on telemetry. I will continue her home Eliquis. 3. Hypertension. Continue the patient on atenolol at this time. Continue chlorthalidone. 4. History of cerebrovascular accident. Continue Lipitor and Eliquis. 5. Possible history of urinary retention. The patient's family describes that they believe she was started on doxazosin due to the urinary retention during the hospital stay after her stroke, though it is unclear. We will continue at this time. 6. Severe obstructive sleep apnea. The patient's family will bring in her CPAP and I will place an order for this. 7. Depression or anxiety. Continue the patient on Zoloft. The patient is unclear if she has been diagnosed with this in the past. 8. FEN. The patient's potassium and magnesium are low. All of these had been replaced. I will continue to monitor this. The patient will have a regular unrestricted diet. She received 1 L of normal saline in the emergency department and I will not continue this as no further fluids are needed. 9. Code status. The patient is okay with CPR, but is a do not intubate. 10. DVT prophylaxis. The patient had a DVT risk score of 3. I will continue her home Eliquis. TIME SPENT: Approximately 50 minutes were spent on this admission, approximately half this time was spent at the bedside, evaluating the patient, and discussing the plan of care. This case has been reviewed with my attending, Dr. Mani Campo; he agrees with this plan of care. LILLIAM COLLADO /[id number]/CPS #: [id number]/CPS #: [id number] [id number]
[2019-07-21] MEDS ORDERED: Diltiazem XR EXTEND Releas(NF) 240 MG CAP PO SCH (17:00)
--- NOTE | 2019-07-21 19:45 | HP ---
ADMISSION HISTORY AND PHYSICAL: DATE OF ADMISSION: ADDENDUM: HISTORY OF PRESENT ILLNESS: Bisi Deng is a 79-year-old white female with past medical history significant for hypertension; CVA with residual right arm weakness; dysarthria; expressive aphasia; atrial fibrillation, on Eliquis; and severe CHRISTINE on CPAP, who presented to the emergency department today after an episode of unresponsiveness witnessed by her privately hired aide. She was having a normal day and was walking towards the door with her aide to leave the house to go to an appointment and she before opening the door noted to her aide that she felt unwell suddenly. The patient tells me she is unable to specify what she meant by that, but said that she felt off of her normal, "off" compared to her normal. She did not experience any chest pain, difficulty breathing, abdominal pain, dizziness or lightheadedness leading up to this. She then was able to walk towards her couch and by that time the aide got her to the couch, she slumped over and was unresponsive for a total of approximately 1 minute. The patient's aide reports that while she was holding the patient in her arms, she felt the patient tensed her muscles, but did not observe overt convulsions. The patient and her aide and her family deny an episode of bowel or bladder incontinence. When the patient became responsive again after approximately 1 minute, she was regarding faces, but not answering questions and was not interacting appropriately. She several minutes later by the time the ambulance arrived was able to walk for the paramedics, but was apparently not walking with her normal self. At this time, the patient is back to her normal baseline, answers questions appropriately. She is making jokes and has no confusion and her family endorses that she is at her baseline mental status. She denies abdominal pain, nausea, vomiting, chest pain difficulty breathing fever chills, dizziness, lightheadedness, visual changes, and headache. EMERGENCY DEPARTMENT COURSE: The patient arrived to the emergency department. Her vital signs were temperature 98.1, pulse rate was 69 beats per minute, respiratory rate 18, oxygen saturation 98% on room air, blood pressure 128/71. Later heart rate was 45 beats per minute. The patient was acting her normal self in the emergency department and the hospitalists were asked to evaluate the patient for admission. PAST MEDICAL HISTORY: 1. Hypertension. 2. Gout. 3. CVA with residual right arm weakness, dysarthria, expressive aphasia. 4. AFib, on Eliquis. 5. Osteoarthritis. 6. Questionable history of depression or anxiety as the patient is on Zoloft. 7. Severe CHRISTINE, on CPAP. 8. Possible history of urinary retention. PAST SURGICAL HISTORY: 1. Appendectomy. 2. Left knee replacement. HOME MEDICATIONS: 1. Eliquis 10 mg p.o. daily. 2. Chlorthalidone 25 mg p.o. daily. 3. Zofran 4 mg p.o. q.6 hours p.r.n. nausea and vomiting. 4. Trazodone 25 mg p.o. at bedtime. 5. Zoloft 50 mg p.o. daily. 6. Pyridium 100 mg p.o. t.i.d. p.r.n. pain. 7. Pantoprazole 40 mg p.o. daily. 8. MiraLAX 17 g p.o. daily p.r.n. constipation. 9. Doxazosin 2 mg p.o. daily. 10. Lasix 40 mg p.o. daily. 11. Potassium chloride 40 mEq p.o. daily. 12. Bisacodyl 5 mg p.o. every other day p.r.n. constipation. 13. Lipitor 80 mg p.o. daily. 14. Diltiazem 60 mg p.o. 4 times a day. 15. Atenolol 25 mg p.o. daily. ALLERGIES: Hives to LEVOFLOXACIN; hives to PENICILLIN; dry skin to VASELINE. FAMILY HISTORY: Mother had coronary artery disease. Father passed and had a stroke, did have confirmed history of VTE. SOCIAL HISTORY: The patient denies tobacco use, illicit drug use, and alcohol use. 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 She lives with her daughter and son-in-law. Her daughter, Erma Fox is her healthcare proxy. Her phone number is [phone]. REVIEW OF SYSTEMS: An 11-point review of systems was completed. All pertinent positives and negatives are above in the HPI; other systems are negative. PHYSICAL EXAMINATION GENERAL: An obese elderly white female lying in the hospital bed, appearing comfortable in no acute distress. HEENT: Eyes: PERRL, sclerae anicteric, no nystagmus. ENT: Mucous membranes are moist. LUNGS: Clear to auscultation throughout. CARDIO: Regular in rhythm without murmurs, rubs, or gallops. ABDOMEN: Normoactive bowel sounds x4 quadrants. Abdomen is soft, nontender, and nondistended without appreciable hepatosplenomegaly. EXTREMITIES: No clubbing, cyanosis, or edema. NEURO: The patient is alert and oriented x3. Minimal dysarthria and at times with expressive aphasia, which is at her baseline. Her face overall appears symmetrical, although there is small right drooping of her mouth, which the family states is baseline. Face is otherwise symmetrical. Sensation to light touch is grossly intact throughout. Tongue is midline. SKIN: Warm, dry, and intact. DIAGNOSTIC STUDIES/LAB DATA: White blood cell count 9.7, hemoglobin 13.2, hematocrit 41, platelet count 324. Sodium 140, potassium 3.3, chloride 99, carbon dioxide 32, anion gap 9, BUN 40, creatinine 1.4, glucose 104, lactic acid 1.8, magnesium 1.8. Bilirubin 0.5, AST 13, ALT 11, alk phos of 92. Urinalysis: Urine with +3 white blood cells, +1 leukocyte esterase, +1 urine bacteria, trace urine rbc's. Serum alcohol less than 10. Chest x-ray: Cardiomegaly without evidence of pulmonary edema. Probable obstructive lung disease. No acute pulmonary process evident. Brain CT: No acute intracranial abnormality identified. Old infarct in left frontal lobe and left basal ganglia. EK beats per minute, irregularly regular rhythm consistent with atrial fibrillation. No ST depressions or elevations. There is much artifact and it is difficult to appreciate if there are any T-wave changes, though it does not appear there are any T-wave inversions. ASSESSMENT AND PLAN: Narinder Deng is a 79-year-old white female with past medical history significant for cerebrovascular accident; atrial fibrillation, on Eliquis; severe obstructive sleep apnea, on CPAP; hypertension; gout; and possibly urinary retention, who presents to the emergency department after an episode of unresponsiveness. The patient will be admitted OBV for: 1. Episode of unresponsiveness. The etiology is unclear at this time. Seizure is on the differential given that the patient does have a history of stroke and it is quite possible that she was having non tonic clonic convulsions during her episode of unresponsiveness; however, it is unclear. I will order an EEG, though this may not be revealing. I do not believe that she is actively having seizure. She is at her baseline mental status. She is interacting appropriately. She is bradycardic in the emergency department and I do have a concern for cardiac etiology. This is less likely the aortic stenosis or significant LV change and I will not order an echocardiogram at this time, as she appears without any respiratory status changes or any other sings of decompensation. She will be monitored on telemetry, perhaps her atenolol or her diltiazem dose should be adjusted to prevent this bradycardia. We will continue to monitor this. She was not initially bradycardic when she arrived. Additionally on the differential is vasovagal syncope. She was not orthostatic in the emergency department. She was feeling immediately unwell prior to this episode, which makes me wonder if this was vasovagal related to that feeling or perhaps this is a prodrome of a seizure, though it is unclear. 2. Atrial fibrillation. The patient is rate controlled at this time. As previously mentioned, perhaps her atenolol or diltiazem should be adjusted during this hospital stay. We will continue to monitor this on telemetry. I will continue her home Eliquis. 3. Hypertension. Continue the patient on atenolol at this time. Continue chlorthalidone. 4. History of cerebrovascular accident. Continue Lipitor and Eliquis. 5. Possible history of urinary retention. The patient's family describes that they believe she was started on doxazosin due to the urinary retention during the hospital stay after her stroke, though it is unclear. We will continue at this time. 6. Severe obstructive sleep apnea. The patient's family will bring in her CPAP and I will place an order for this. 7. Depression or anxiety. Continue the patient on Zoloft. The patient is unclear if she has been diagnosed with this in the past. 8. FEN. The patient's potassium and magnesium are low. All of these had been replaced. I will continue to monitor this. The patient will have a regular unrestricted diet. She received 1 L of normal saline in the emergency department and I will not continue this as no further fluids are needed. 9. Code status. The patient is okay with CPR, but is a do not intubate. 10. DVT prophylaxis. The patient had a DVT risk score of 3. I will continue her home Eliquis. TIME SPENT: Approximately 50 minutes were spent on this admission, approximately half this time was spent at the bedside, evaluating the patient, and discussing the plan of care. This case has been reviewed with my attending, Dr. Mani Campo; he agrees with this plan of care. LILLIAM MACHADO [id number]/[facility] #: [id number] MTDD
[2019-07-21] MEDS: traZODone TAB* 50 MG TAB PO SCH (21:10)
--- NOTE | 2019-07-21 22:25 | EEG ---
ELECTROENCEPHALOGRAPHY: DATE: 07/21/19 - ROOM #434 DATE OF DICTATION: 07/21/19 PATIENT OF: LILLIAM Collado CLINICAL PROBLEM: This is a 79-year-old woman being evaluated for a possible seizure. She initially became diaphoretic and pale and then became flaccid and nonverbal for a minute, is at loss of consciousness. This study was done to evaluate for possible seizures. MEDICATIONS: Include: 1. Diltiazem. 2. Trazodone. 3. Apixaban. 4. Atenolol. 5. Atorvastatin. 6. Chlorthalidone. 7. Furosemide. 8. Pantoprazole. 9. Sertraline. 10. Mag-Ox. 11. Klor-Con. REPORT: With the patient awake, background cerebral activity consists of moderate amplitude posterior dominant 7 to 8 Hz. No activation procedures are performed. At times there is muscle movement artifact. The patient never falls asleep. No epileptiform potentials, focal abnormalities, or major asymmetries of background are noted. CLINICAL IMPRESSION: This awake EEG is within normal limits. [id number]/[facility] #: [id number] [facility]
[2019-07-22 05:15] LABS: ABS Eosinophils 0.1 10^3/ul (0-0.6); ABS Lymphocytes 1.6 10^3/ul (1.0-4.8); ABS Monocytes 0.4 10^3/ul (0-0.8); ABS Neutrophils 6.7 10^3/ul (1.5-7.7); Eosinophil % 1.4 %; Hematocrit 37 % (35-47); Lymphocyte % 17.9 %; Mean Corpuscular HGB Conc 33 g/dL (31-36); Mean Corpuscular Hemoglobin 26 pg (27-31); Mean Corpuscular Volume 78 fL (80-97); Mean Platelet Volume 8.5 fL (7.4-10.4); Nucleated Red Blood Cells % 0.2; Platelet Count 326 10^3/uL (150-450); Red Blood Count 4.68 10^6 /uL (3.70-4.87); Red Cell Distribution Width 18 % (10-15); White Blood Count 8.8 10^3/uL (3.5-10.8)
[2019-07-22 05:33] LABS: Potassium 3.1 mmol/L (3.5-5.0)
[2019-07-22 05:34] LABS: Calcium 9.9 mg/dL (8.6-10.3); EGFR African American 54.7 (>60); EGFR Non-African American 45.2 (>60)
[2019-07-22] MEDS ORDERED: Potassium Chlor TAB* 20 MEQ TAB.ER PO SCH (09:00)
[2019-07-22] MEDS ORDERED: Atenolol TAB* 25 MG PO SCH (09:00)
[2019-07-22] MEDS ORDERED: Chlorthalidone TAB* 50 MG PO SCH (09:00)
[2019-07-22] MEDS: Pantoprazole TAB * 40 MG TAB PO SCH (09:38)
[2019-07-22] MEDS: Sertraline* 50 MG TAB PO SCH (09:38)
[2019-07-22] MEDS: Diltiazem CD CAP* 240 MG PO SCH ×2 (09:38→10:58)
[2019-07-22] MEDS: Doxazosin TAB* 2 MG PO SCH (09:38)
[2019-07-22] MEDS: Atorvastatin* 80 MG TAB PO SCH (09:38)
[2019-07-22] MEDS: Furosemide TAB* 40 MG PO SCH (09:38)
[2019-07-22] MEDS: Diltiazem TAB* 60 MG PO SCH ×3 (11:24→21:23)
--- NOTE | 2019-07-22 14:26 | PN ---
Subjective Date of Service: 07/22/19 Interval History: Patient admitted yesterday w/ 1 minute episode of unresponsiveness. Had a prodrome, also was observed to have stiffening of arms when unconscious. No further events overnight. Family History: Unchanged from Admission Social History: Unchanged from Admission Past Medical History: Unchanged from Admission Objective Active Medications: Acetaminophen (Tylenol Tab*) 650 mg PO Q4H PRN PRN Reason: MILD PAIN or TEMP > 100.4 Al Hydrox/Mg Hydrox/Simethicone (Maalox Plus*) 30 ml PO Q6H PRN PRN Reason: INDIGESTION Apixaban (Eliquis*) 5 mg PO BID [facility] Atenolol (Tenormin Tab*) 25 mg PO DAILY [facility] Last Admin: 07/22/19 09:38 Dose: 25 mg Atorvastatin Calcium (Lipitor*) 80 mg PO DAILY [facility] Last Admin: 07/22/19 09:38 Dose: 80 mg Bisacodyl (Dulcolax Ec Tab*) 5 mg PO EVERY OTHER DAY PRN PRN Reason: CONSTIPATION Chlorthalidone (Hygroton Tab*) 25 mg PO DAILY [facility] Last Admin: 07/22/19 09:36 Dose: 25 mg Diltiazem HCl (Cardizem Tab*) 60 mg PO Q6H [facility] Last Admin: 07/22/19 11:24 Dose: 60 mg Doxazosin Mesylate (Cardura Tab*) 2 mg PO DAILY [facility] Last Admin: 07/22/19 09:38 Dose: 2 mg Furosemide (Lasix Tab*) 40 mg PO DAILY [facility] Last Admin: 07/22/19 09:38 Dose: 40 mg Ondansetron HCl (Zofran Inj*) 4 mg IV Q4H PRN PRN Reason: NAUSEA/VOMITING Pantoprazole Sodium (Protonix Tab*) 40 mg PO DAILY [facility] Last Admin: 07/22/19 09:38 Dose: 40 mg Phenazopyridine HCl (Pyridium Tab*) 100 mg PO TID PRN PRN Reason: PAIN - MODERATE Polyethylene Glycol/Electrolytes (Miralax*) 17 gm PO DAILY PRN PRN Reason: CONSTIPATION Potassium Chloride (Klor Con Er Tab*) 40 meq PO DAILY [facility] Last Admin: 07/22/19 09:38 Dose: 40 meq Senna (Senokot 8.6 Mg Tab*) 1 tab PO BID PRN PRN Reason: CONSTIPATION Sertraline HCl (Zoloft*) 50 mg PO DAILY [facility] Last Admin: 07/22/19 09:38 Dose: 50 mg Trazodone HCl (Desyrel Tab*) 25 mg PO BEDTIME [facility] Last Admin: 07/21/19 21:10 Dose: 25 mg Vital Signs - 8 hr 07/22/19 07/22/19 07/22/19 07:15 08:41 11:15 Temperature 36.6 C 36.2 C Pulse Rate 59 89 63 Respiratory 16 16 Rate Blood Pressure 153/69 130/59 (mmHg) O2 Sat by Pulse 100 98 Oximetry Oxygen Devices in Use Now: None Appearance: alert, no distress Neck: NL Appearance and Movements; NL JVP Respiratory: Symmetrical Chest Expansion and Respiratory Effort, Clear to Auscultation Cardiovascular: NL Sounds; No Murmurs; No JVD - irregular, - Abdominal: NL Sounds; No Tenderness; No Distention Neurological: Alert and Oriented x 3, - - dysarthric speech, ambulatory, motor 4 +/5 RUE Lines/Tubes/Other Access: Clean, Dry and Intact Peripheral IV Nutrition: Taking PO's Result Diagrams: 07/22/19 04:52 07/22/19 04:52 Microbiology and Other Data: Microbiology 07/21/19 12:55 Urine Culture - Preliminary Urine Escherichia Coli Proteus Species Diagnostic Imaging: EEG: normal EKG Data: 2.5 second pause on telemetry. HR 50-60 often Assess/Plan/Problems-Billing Assessment: 79 year old woman with h/o stroke, admitted w/ unresponsive episode - Patient Problems (1) Syncope and collapse Current Visit: Yes Status: Acute Priority: High Code(s): R55 - SYNCOPE AND COLLAPSE SNOMED Code(s): 235008814 Comment: -Differential includes seizure, bradycardia, vagal episode -EEG reviewed -Will discuss with neurology (2) Bradycardia Current Visit: Yes Status: Acute Priority: High Code(s): R00.1 - BRADYCARDIA, UNSPECIFIED SNOMED Code(s): 79068042 Comment: -2.5 second pause strongly suggests bradycardia may have caused LOC -Will stop atenolol, observe on telemetry. (3) Hypokalemia due to excessive renal loss of potassium Current Visit: Yes Status: Acute Priority: Medium Code(s): E87.6 - HYPOKALEMIA SNOMED Code(s): 63882434 Comment: -Repleted in ER and overnight, but K still low -Will have further repletion and recheck in AM -Stopped thiazide diuretic (4) DVT prophylaxis Current Visit: No Status: Acute Priority: Low Code(s): SWZ3662 - SNOMED Code(s): 125519436 Comment: - on eliquis (5) Bacteriuria Current Visit: Yes Status: Acute Priority: Medium Code(s): R82.71 - BACTERIURIA SNOMED Code(s): 19707387 Comment: -No symptoms of UTI, not treated Status and Disposition: likely discharge tomorrow
[2019-07-22] MEDS: Potassium Chlor TAB* 20 MEQ TAB.ER PO SCH ×2 (17:12→21:22)
--- NOTE | 2019-07-22 19:40 | CONS ---
CONSULTATION REPORT: DATE OF CONSULT: 07/22/19 CURRENT LOCATION: 434, bed 1. PRIMARY CARE PROVIDER: Dr. Degroot. REASON FOR CONSULTATION: Loss of consciousness. HISTORY OF PRESENT ILLNESS: Ms. Deng is a very harshil 79-year-old female who I first saw in clinic back in mid June. She has a history of a stroke that happened about a year ago, she was taken to [facility]. I do not have those records yet, although I have requested them. 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 She also has some mild expressive aphasia as well. At home, she is able to use her walker to get around. She has a history of AFib, is on Eliquis and within her usual state of health when yesterday she was going out the door to see her doctor when she suddenly stated that she did not feel well. Subsequently, she took a few steps backward, sat down on a couch, and her client services specialist said that she became somewhat unresponsive. She states that she stiffened, but she is unclear whether she was trying to hold herself up on the couch. This lasted for about a minute and she was confused afterwards for several minutes, could not speak. There was no bladder or bowel incontinence. There is no prior history of seizures or risk factors for seizures. Afterwards, the patient felt better, but they brought her to the hospital where her heart rate was noted to be in the 30s. In addition, she had a 2.5 second pause overnight on telemetry. Dr. Castro has adjusted her blood pressure medications including stopping her atenolol and she has had no further episodes. The patient states that currently she feels much better. Her daughter is at the bedside and was able to provide some supplemental history. The patient typically is able to do most of her ADLs at home with some help. She has a client services specialist that helps her, and she is on secondary stroke risk factor reduction including blood pressure medication, statin, and Eliquis. PAST MEDICAL HISTORY: Includes chronic atrial fibrillation, essential hypertension, stroke, osteoarthritis. PAST SURGICAL HISTORY: Includes a knee replacement in 2018. MEDICATIONS: At home include: 1. Atenolol 25 mg 1 daily. 2. Diltiazem 60 mg 4 times a day. 3. Lipitor 80 mg a day. 4. Colace. 5. Potassium chloride. 6. Furosemide. 7. Doxazosin. 8. MiraLAX. 9. Protonix. 10. Phenazopyridine. 11. Zoloft. 12. Trazodone. 13. Chlorthalidone. 14. Eliquis. FAMILY HISTORY: Father with brain cancer, , and a brain aneurysm. Mother due to heart disease. SOCIAL HISTORY: She lives with her daughter. She is retired. She is left- handed. She notes no tobacco use, no alcohol use, no drug use. REVIEW OF SYSTEMS: Review of systems of 14-organ systems as noted above, otherwise negative. PHYSICAL EXAM: Vital Signs: Temperature of 98.7, heart rate of 63, respiratory rate of 16, pulse ox 98% on room air, blood pressure 130/59. General: She is a well-nourished, well-developed, obese female, in no acute distress. She is sitting in her hospital bed, her daughter is at the bedside. She is pleasant, has a good sense of humor. HEENT: She is normocephalic, atraumatic. Sclerae anicteric. Mucous membranes moist. She has poor dentition. Neck is supple. No thyromegaly. No carotid bruits. No meningismus. Chest: Clear to auscultation bilaterally. Cardiovascular: Irregularly irregular. Abdomen is obese, nontender. Extremities: No clubbing, cyanosis, or edema. On neurologic exam, she is awake, alert. She is oriented x3. Her speech is fluent but slow. She has some difficulty finding words at times and she is dysarthric. Cranial Nerves: Pupils are equally round and reactive to light and accommodation. Extraocular muscles are intact without nystagmus or diplopia. Visual latif are full. Facial sensation is intact. Face is asymmetric with a right lower facial droop. Hearing is intact bilaterally. Tongue is midline. Palate rises symmetrically. She spontaneously moves all extremities antigravity with good tone and bulk, 5/5 with a mild drift in the right upper and right lower extremities. DTRs are 1+ and symmetric in the upper and lower extremities with equivocal Babinski's. Rapid alternating movements are slow, but intact, slower on the right. Gait was not tested, but she has been ambulating with a walker. DIAGNOSTIC STUDIES/LAB DATA: Lab work includes CBC with diff with MCV of 78, RDW of 18. INR of 1.42, PTT of 32.7. Potassium of 3.1, BUN of 36, creatinine of 1.16, BUN 31, glucose of 106, TSH of 2.36. Urine, 1+ blood, 1+ leukocyte esterase, 3+ wbc's, 1+ urine bacteria. Serum alcohol less than 10. She did have a brain CT done on 07/21/19, which showed no acute intracranial abnormality, old infarct in the left frontal lobe and left basal ganglia. She also had electroencephalogram yesterday on 07/21/19, impression: This awake EEG is within normal limits. ASSESSMENT AND PLAN: Ms. Deng is a 79-year-old female who had a history of a left middle cerebral artery stroke approximately 1 year ago with resultant right- sided weakness and some dysarthria with some expressive aphasia as well. She was in her usual state of health when she had an episode yesterday where she briefly lost consciousness and was unresponsive. No bladder or bowel incontinence. No history of seizures. In the ER, she was noted to be bradycardic, and she had a 2.5 second pause overnight. I did speak with Dr. Castro, and at this point, we feel that her symptoms may have been precipitated by an episode of bradycardia or arrhythmia given her history of atrial fibrillation and the pause seen. I would recommend getting an outpatient 30- day event monitor to better evaluate for any arrhythmias other than her atrial fibrillation. In addition, I agree with Dr. Castro's adjustments to her medication including stopping her beta-moi. We did discuss the fact that she is at a increased risk for seizures because of her stroke, but her EEG was normal and the semiology remains very unclear. I think at this point it is reasonable to try adjusting her blood pressure medicines and looking for any arrhythmias before we add any seizure medications. I do not have enough information yet to add seizure medication. If she has another episode, then I would recommend starting Keppra, I would start at 250 b.i.d. and titrate up. The daughter will let me know if she has another episode and she is to bring her to the ER if she has another episode. We also briefly discussed SUDEP, but again I am unclear at this point that this was a seizure. I will continue to follow her. I have a followup with her in clinic in several months. I will be notified with any new episodes. Thank you for the opportunity to participate in the care of this very interesting patient. [id number]/[facility] #: [id number] ZABRINA
[2019-07-22] MEDS: Apixaban* 5 MG TAB PO SCH (21:22)
[2019-07-22] MEDS: traZODone TAB* 50 MG TAB PO SCH (21:23)
[2019-07-23] MEDS: Diltiazem TAB* 60 MG PO SCH ×2 (03:52→09:00)
[2019-07-23 05:23] LABS: BUN/Creatinine Ratio 32.8 (8-20); Calcium 9.7 mg/dL (8.6-10.3); EGFR African American 51.6 (>60); EGFR Non-African American 42.6 (>60)
[2019-07-23] MEDS: Doxazosin TAB* 2 MG PO SCH (08:58)
[2019-07-23] MEDS: Atorvastatin* 80 MG TAB PO SCH (08:59)
[2019-07-23] MEDS: Pantoprazole TAB * 40 MG TAB PO SCH (08:59)
[2019-07-23] MEDS: Apixaban* 5 MG TAB PO SCH (08:59)
[2019-07-23] MEDS: Potassium Chlor TAB* 20 MEQ TAB.ER PO SCH (09:00)
[2019-07-23] MEDS: Sertraline* 50 MG TAB PO SCH (09:00)
[2019-07-23] MEDS: Furosemide TAB* 40 MG PO SCH (09:00)
[2019-07-23 09:40] VITALS: BP 134/73
--- NOTE | 2019-07-23 10:49 | DS ---
CC: Dr. Degroot DISCHARGE SUMMARY: DATE OF ADMISSION: DATE OF DISCHARGE: 07/23/19 HISTORY: This 79-year-old woman presented after 1-minute episode of unresponsiveness. This was witn essed by her home health aide. She helped her to the couch. She felt the muscle stiffen, but there was no tremor. The patient then returned to her baseline status. She was then observed here a day a nd a half and I believe it is at her baseline state. She had an EEG, which did not show any indicati on of seizure disorder. She was evaluated by Dr. Krishnamurthy who agreed with lowering her antihypertensive meds and not giving antiepileptic medication at this time. He felt that the etiology of her unrespon sive episode was unclear. He recommended 30-day outpatient cardiac monitoring to detect other arrhyt hmias. She was monitored throughout her hospital stay. She remains in atrial fib; she had occasional pauses up to 2-1/2 seconds. Atenolol and chlorthalidone were stopped. Her heart rate was still 67 on the m orning of discharge. Blood pressure 159/77. She was not orthostatic on testing in the emergency room . FINAL DIAGNOSES: 1. Syncope. 2. Atrial fibrillation with bradycardia. 3. Hypokalemia. 4. History of old stroke with residual aphasia, right facial droop, and right arm weakness. 5. Bacteriuria. DISCHARGE MEDICATIONS: 1. Ondansetron 4 mg every 6 hours p.r.n. 2. Trazodone 25 mg at bedtime. 3. Sertraline 50 mg daily. 4. Phenazopyridine 100 mg t.i.d. 5. Pantoprazole 40 mg daily. 6. Furosemide 20 mg daily. 7. Potassium chloride 20 mEq b.i.d. 8. Polyethylene glycol 17 g daily p.r.n. 9. Doxazosin 2 mg daily. 10. Bisacodyl 5 mg daily. 11. Atorvastatin 80 mg daily. 12. Diltiazem 240 mg daily. 13. Apixaban 5 mg daily. The patient was given a requisition to have BMP in 5 days; perhaps this could be done by visiting mariajose se at home. Medications that she is currently taking that may possibly be modified to reduce hypotension and/or h ypokalemia are her furosemide, doxazosin, diltiazem, sertraline, and trazodone. Depending on the ris k/benefit balance, some of these medications could be reduced or eliminated. This should also depend on her blood pressure and heart rate evaluation at her followup visits as well as the results of her BMP. As mentioned above, 30-day outpatient cardiac monitoring could be considered for detection of other a rrhythmias and/or pauses. CONDITION ON DISCHARGE: Stable. DISPOSITION ON DISCHARGE: Discharged home. [id number]/[facility] #: [id number]
[2019-07-24] MEDS ORDERED: Furosemide TAB* 20 MG PO SCH (09:00)
== END 2019-07-23 10:51 | disposition home or self-care (01) ==
LOC: ED 10:29 → MEDTELE 15:08
PROVIDERS: ADMIT Internal Medicine; ATTEND Internal Medicine
DX: R55 Syncope and collapse (principal); I48.91 Unspecified atrial fibrillation; R00.1 Bradycardia, unspecified; E87.6 Hypokalemia; I69.351 Hemiplegia and hemiparesis following cerebral infarction affecting right dominant side; R82.71 Bacteriuria; Z79.899 Other long term (current) drug therapy; I10 Essential (primary) hypertension; Z79.01 Long term (current) use of anticoagulants; G47.33 Obstructive sleep apnea (adult) (pediatric); M10.9 Gout, unspecified; F32.9 Major depressive disorder, single episode, unspecified
CPT/HCPCS: 36415; 70450; 71046; 80048; 80053; 80320; 81003; 81015; 83605; 83735; 83880; 84443; 84484; 85025; 85610; 85730; 87077; 87086; 87186; 93005; 95816; 96360; 96361; 99283; A9270-GY; G0378; G0480

== ENCOUNTER 2019-11-16 13:15 | Inpatient (IN) | payer MEDICARE ==
[2020-01-11] MEDS ORDERED: Lactated Ringers 1000 ml BAG 1,000 ML IV SCH (06:00)
[2020-01-11] MEDS ORDERED: Lidocaine 2% PF 5 ML VIAL ONE ×2 (13:06→13:15)
[2020-01-11] MEDS ORDERED: Propofol 10 MG/ML 20 ML BTL ONE (13:06)
[2020-01-11] MEDS ORDERED: Midazolam 2 mg/2 ml VIAL 1 mg/ml 2 ml VIAL (2 mg) ONE ×2 (13:07→17:25)
[2020-01-11] MEDS ORDERED: Bupivacaine 0.5% SDV PF 30ML VIAL ONE (13:14)
[2020-01-11] MEDS ORDERED: Phenylephrine IV 10 MG/ML 1 ml VIAL ONE (13:54)
[2020-01-11] MEDS ORDERED: Clindamycin 900 MG/D5W BAG(*) 900 MG/50 ML BAG IVPB ONE (14:20)
[2020-01-11] MEDS ORDERED: ROPIVACAINE 5 MG/ML 30 ML BTL (0.5%) ONE ×2 (14:54→15:06)
[2020-01-11] MEDS ORDERED: Etomidate 20 mg/10 ml 2 MG/ML 10 ml VIAL ONE (15:54)
[2020-01-11] MEDS ORDERED: fentaNYL 100 mcg/2 ml 50 MCG/ML VIAL ONE ×2 (15:55→17:18)
[2020-01-11] MEDS ORDERED: Rocuronium 50 mg VIAL 10 mg/ml 5 ml VIAL (50 mg) ONE (16:32)
[2020-01-11] MEDS ORDERED: DiMENhydriNATE IV 50 mg/ml 1 ml VIAL IV PUSH PRN (16:49)
[2020-01-11] MEDS ORDERED: fentaNYL 100 mcg/2 ml 50 MCG/ML VIAL IV PRN (16:49)
[2020-01-11] MEDS ORDERED: Naloxone 0.4 mg VIAL 0.4 mg/ml 1 ml VIAL IV PRN (16:49)
[2020-01-11] MEDS ORDERED: Acetaminophen IV 1 GM/100ML 100 ML ONE (17:38)
[2020-01-11] MEDS ORDERED: Ondansetron 4 mg VIAL 2 MG/ML 2 ml VIAL ONE (17:38)
[2020-01-11] MEDS ORDERED: Dexamethasone IV 4 MG/ML VIAL 1 ml VIAL ONE (17:39)
[2020-01-11] MEDS ORDERED: Ondansetron ODT 4 mg TAB 4 MG TAB PO PRN (18:32)
[2020-01-11] MEDS ORDERED: Ondansetron 4 mg VIAL 2 MG/ML 2 ml VIAL IV PRN (18:32)
[2020-01-11] MEDS ORDERED: Magnesium Hydroxide LIQ 30 ML UDC PO PRN (18:32)
[2020-01-11] MEDS ORDERED: Lactulose 30 ml UDC PO PRN (18:32)
[2020-01-11] MEDS ORDERED: diPHENhydraMINE 25 mg TAB PO PRN (18:32)
[2020-01-11] MEDS ORDERED: diPHENhydraMINE IV 50 MG/ML 1 ml VIAL (BENADRYL) IV PRN (18:32)
[2020-01-11] MEDS: Lactated Ringers 1000 ml BAG 1,000 ML IV SCH (19:59)
[2020-01-11] MEDS: Potassium Chlor 20 meq TAB.ER PO SCH (20:37)
[2020-01-11] MEDS: Magnesium Hydroxide LIQ 30 ML UDC PO SCH (20:41)
[2020-01-11] MEDS: oxyCODONE/Acetamin 5/325 mg TAB PO PRN (21:57)
[2020-01-12] MEDS ORDERED: Polyethylene Glycol 3350 17 GM PACKET PO PRN (00:01)
[2020-01-12] MEDS: Clindamycin 600 MG/NS BAG(*) 600 MG/50 ML BAG IV SCH ×3 (00:11→16:34)
[2020-01-12] MEDS: oxyCODONE/Acetamin 5/325 mg TAB PO PRN ×4 (02:00→22:35)
[2020-01-12] MEDS ORDERED: Lactated Ringers 500 ml BAG 500 ML IV ONE (05:37)
[2020-01-12] MEDS: Lactated Ringers 1000 ml BAG 1,000 ML IV SCH (05:52)
[2020-01-12 06:34] LABS: Hematocrit 31 % (35-47); Hemoglobin 10.1 g/dL (12.0-16.0); Mean Platelet Volume 8.4 fL (7.4-10.4); Platelet Count 267 10^3/uL (150-450)
[2020-01-12 06:53] LABS: BUN/Creatinine Ratio 17.6 (8-20); Calcium 9.1 mg/dL (8.6-10.3); EGFR African American 50.2 (>60); EGFR Non-African American 41.4 (>60)
[2020-01-12] MEDS ORDERED: NS 0.9% 500 ml BAG 500 ML IV ONE (10:24)
[2020-01-12] MEDS: Magnesium Hydroxide LIQ 30 ML UDC PO SCH ×2 (10:29→22:46)
[2020-01-12] MEDS: Potassium Chlor 20 meq TAB.ER PO SCH ×2 (10:33→22:34)
[2020-01-12] MEDS: Vitamin THERAPEUTIC TAB PO SCH (10:34)
[2020-01-13] MEDS: oxyCODONE/Acetamin 5/325 mg TAB PO PRN ×3 (04:34→13:23)
[2020-01-13] MEDS: Vitamin THERAPEUTIC TAB PO SCH (09:18)
[2020-01-13] MEDS: Potassium Chlor 20 meq TAB.ER PO SCH (09:19)
[2020-01-13] MEDS: Magnesium Hydroxide LIQ 30 ML UDC PO SCH (09:21)
[2020-01-13] MEDS ORDERED: Potassium Chloride LIQUID 20 MEQ/15 ML LIQUID PO ONE (09:46)
[2020-01-13 12:21] VITALS: BP 124/54
== END 2020-01-13 14:31 | disposition home health service (06) | DRG 470 ==
LOC: INTOOBSV 01-11 13:51 → AA 01-11 13:51 → SSU 01-11 18:32
PROVIDERS: ADMIT Orthopaedic Surgery Adult Reconstructive Orthopaedic Surgery; ATTEND Orthopaedic Surgery Adult Reconstructive Orthopaedic Surgery